=== PATIENT | female | born 1930 | race Caucasian/White ===

== ENCOUNTER 2019-01-20 13:41 | Outpatient (CLI) | payer MEDICARE ==
[2014-07-25 19:06] VITALS: BP 156/78
[2019-01-20 14:29] LABS: eGFR (Non-African) > 60
[2019-01-20 14:45] LABS: MEAN CORPUSCULAR HEMOGLOBIN 30.5 pg (28.0-34.0)
[2019-01-20 14:46] LABS: EOSINOPHILS % 1 % (0-7); MONOCYTES % 12 % (0-11); SEGMENTED NEUTROPHILS % 68 % (39-79)
--- NOTE | 2019-01-20 15:06 | Diagnostic Imaging Report ---
LISY TRUONG [facility] [address] Formerly [facility], [facility] [place] [address]. [id number] Report Submission Date: Jan 20, 2019 2:27:54 PM CDT Patient Study Name: DAMON MARX Date: Jan 20, 2019 2:00:34 PM CDT Modality Type: DX Gender: F Description: CHEST 2VIEW : [birth year] Institution: [facility] Physician: LISY TRUONG EXAMINATION: CHEST 2VIEW HISTORY: COUGHING FOR WEEKS TREATED FOR FLU NOT GETTING BETTER (Hx) COMPARISON: None FINDINGS: There is no focal consolidation, pleural effusion, or pneumothorax. The cardiomediastinal silhouette is normal. The visible bony thorax is intact. IMPRESSION: No acute pulmonary process. Electronically signed on Jan 20, 2019 2:27:54 PM CDT by: Gerardo CARTER
== END 2019-01-20 13:43 ==
LOC: LAB 13:41
PROVIDERS: ATTEND Family Medicine
DX: J11.1 Influenza due to unidentified influenza virus with other respiratory manifestations (principal)
CPT/HCPCS: 36415; 71046; 80053; 85025

== ENCOUNTER 2019-04-13 14:25 | Inpatient (IN) | payer MEDICARE ==
[2019-04-13 14:45] VITALS: BMI 25.6
[2019-04-13] MEDS ORDERED: amLODIPine BESYLATE 5 MG TABLET PO ONE (17:41)
--- NOTE | 2019-04-13 17:53 | History and Physical Report ---
History of Present Illnes - History of Present Illness Reason for Visit: rehab post ORIF of hip History of Present Illness: Patient is and 88-year-old female who three days prior to admission fell and sustained a right hip fracture. Patient subsequently underwent an open reduction internal fixation. Patient stated she is been doing well postoperatively. Patient is not had any intraoperative or postoperative complications. Patient was transferred to this institution for further rehab services with physical and occupational therapy. Patient has had a bowel movement today. Pain while resting is 1 to 2/10. With walking it goes to a 9/10. Patient is not had any previous blood clots that she is aware of. - Past Medical History Cardiac: HTN - Past Surgical History Past Surgical History: Breast Biopsy, Cataract Removal, Hysterectomy - Past Family History Father Family History: CAD, (71yo) Mother Family History: CAD (64yo), Brother 1 Family History: CAD, , Other (72yo) - Past Social History Smoke: No Occupation: retired Alcohol: Rare Drugs: None Lives: Alone Domestic Violence: Negative - Health Maintenance Health Maintenance: Influenza Vaccine, Pneumococcal Vaccine. denies: Mammogram Influenza Vaccine: Current for this Influenza Season Pneumonia Vaccine: Yes Resuscitation Status: Resusciation Status Resuscitation Status Full Code - Unable to Obtain History Unable to Obtain: Yes Review of Systems - Review of Systems Constitutional: negative: Fever, Chills Eyes: redness. negative: vision change ENT: negative: Ear Discharge, Nose Pain, Nose Discharge, Nose Congestion Respiratory: negative: Cough, Shortness of Breath, Hemoptysis Cardiovascular: negative: Chest Pain, Palpitations, Paroxysmal Noc. Dyspnea, Light Headedness Gastrointestinal: negative: Nausea, Vomiting, Abdominal Pain, Diarrhea, Constipation, Melena, Hematochezia Genitourinary: negative: Dysuria, Frequency, Incontinence, Hematuria Musculoskeletal: negative: Leg Pain (right) Skin: negative: Rash Neurological: negative: Weakness, Numbness, Incoordination - Medications/Allergies Allergies/Adverse Reactions: Allergies Allergy/AdvReac Type Severity Reaction Status Date / Time Penicillins Allergy Itchy Skin Verified 04/10/19 11:57 sulfamethoxazole Allergy Itchy Skin Verified 04/10/19 11:57 [From Bactrim] trimethoprim [From Bactrim] Allergy Itchy Skin Verified 04/10/19 11:57 Current Inpatient Medications: Current Inpatient Medications Acetaminophen (Tylenol) 650 mg PO Q4H PRN PRN Reason: Fever >101 Hydrocodone Bitart/Acetaminophen ([place] 5/325) 1 each PO Q4H PRN PRN Reason: Severe Pain (Score 8-10) Al Hydroxide/Mg Hydroxide (Milk Of Magnesia) 2,400 mg PO DAILY PRN PRN Reason: Constipation Amlodipine Besylate (Norvasc) 10 mg PO NOW ONE Stop: 04/13/19 17:42 Aspirin (Dannielle) 81 mg PO BID RITO Bisacodyl (Dulcolax) 5 mg PO DAILY [facility] Calcium/Vitamin D (Oscal + D 500mg/200unit) 1 each PO BID RITO Lisinopril (Prinivil) 20 mg PO DAILY RITO Polyethylene Glycol (Miralax) 17 gm PO 1100 RITO Exam - Exam Vital Signs: Vital Signs (72 hours) 04/13/19 04/13/19 14:38 14:43 Temperature 99.4 F 99.4 F Pulse Rate [ 102 H 102 H Left] Respiratory 20 20 Rate Blood Pressure 135/58 135/58 [Right Arm] O2 Sat by Pulse 94 94 Oximetry General: Alert, Oriented to Person, Oriented to Place, Oriented to Time, Cooperative HEENT: Atraumatic, PERRLA, EOMI, Mouth Mucous membr. moist/[place], Nose Mucous membr. moist/[place], Dentition Normal Neck: Normal Range of Motion Carotids: WNL Thyroid: WNL Lungs: Clear to auscultation, Normal air movement, Speaks full Sentences Cardiovascular: Regular rate, Normal S1, Normal S2, No murmurs Murmur: No: Systolic Murmur Abdomen: Soft, No tenderness, No hepatospenomegaly, No masses, Other (mildly tympanic), Distended (mild), Absent Bowel Sounds (decreased) Integumentary: Normal, [place], Warm, Dry, Other (incision site clean and dry) Extremities: No clubbing, No cyanosis, No edema, Normal pulses, No tenderness/swelling Neurological: Normal speech, Strength Equal Bilat, Normal tone, Sensation intact, Cranial nerves 3-12 NL, Reflexes 2+. No: Normal gait Psych/Mental Status: Mental status NL, Mood NL, Appropriate Affect, Intact Judgment Assessment/Plan - Assessment/Plan (1) Intertrochanteric fracture of right hip Status: Acute Current Visit: No Qualifiers: Encounter type: initial encounter Fracture type: closed Fracture alignment: nondisplaced Qualified Code(s): S72.144A - Nondisplaced intertr ochanteric fracture of right femur, initial encounter for closed fracture Assessment: Patient will be started on physical and occupational therapy. Will continue wit current pain regimen (2) Essential hypertension Status: Chronic Current Visit: Yes Assessment: stable Plan: Continue with home medications. VTE Assessment - RISK FACTOR SCORE VTE RISK FACTOR SCORES: AGE OVER 60 YEARS, ANTICIPATED BED CONFINEMENT OR IMMOBILIZATION > 24 HOURS - RISK VTE MODERATE RISK: SCORE OF 2 (RISK PROXIMAL DVT 2-4%) PROPHYAXIS NEEDED (on ASA)
[2019-04-13] MEDS ORDERED: ASPIRIN EC 81 MG TABLET.DR PO ONE (20:14)
[2019-04-13] MEDS: MAGNESIUM HYDROXIDE 2,400 MG/30 ML UDC PO PRN (20:15)
[2019-04-13] MEDS: CALCIUM/VIT D 500MG/200 UNIT TABLET PO SCH (20:16)
[2019-04-13] MEDS: ASPIRIN 81 MG CHEW TAB PO SCH (20:18)
[2019-04-13] MEDS: HYDROcodone /APAP 5/325 1 EACH TABLET PO PRN (20:18)
[2019-04-14 06:45] LABS: eGFR (Non-African) > 60
[2019-04-14] MEDS: ASPIRIN 81 MG CHEW TAB PO SCH ×2 (09:32→20:18)
[2019-04-14] MEDS: LISINOPRIL 10 MG TABLET PO SCH (09:32)
[2019-04-14] MEDS: BISACODYL 5 MG TABLET.DR PO SCH (09:32)
[2019-04-14] MEDS: CALCIUM/VIT D 500MG/200 UNIT TABLET PO SCH ×2 (09:32→20:18)
[2019-04-14] MEDS: HYDROcodone /APAP 5/325 1 EACH TABLET PO PRN (09:39)
[2019-04-14] MEDS: POLYETHYLENE GLYCOL 3350 17 GM POWD.PACK PO SCH (11:45)
[2019-04-14] MEDS: ACETAMINOPHEN 325 MG TABLET PO PRN (20:18)
[2019-04-14] MEDS: MAGNESIUM HYDROXIDE 2,400 MG/30 ML UDC PO PRN (20:20)
[2019-04-15] MEDS: CALCIUM/VIT D 500MG/200 UNIT TABLET PO SCH ×2 (09:12→20:44)
[2019-04-15] MEDS: ASPIRIN 81 MG CHEW TAB PO SCH ×2 (09:12→20:44)
[2019-04-15] MEDS: HYDROcodone /APAP 5/325 1 EACH TABLET PO PRN ×2 (09:12→23:36)
[2019-04-15] MEDS: BISACODYL 5 MG TABLET.DR PO SCH (09:12)
[2019-04-15] MEDS: LISINOPRIL 10 MG TABLET PO SCH (09:14)
[2019-04-15] MEDS: POLYETHYLENE GLYCOL 3350 17 GM POWD.PACK PO SCH (12:13)
[2019-04-15] MEDS: ACETAMINOPHEN 325 MG TABLET PO PRN (17:56)
[2019-04-15] MEDS: MAGNESIUM HYDROXIDE 2,400 MG/30 ML UDC PO PRN (20:48)
[2019-04-16] MEDS: BISACODYL 5 MG TABLET.DR PO SCH (08:33)
[2019-04-16] MEDS: ASPIRIN 81 MG CHEW TAB PO SCH ×2 (08:34→20:28)
[2019-04-16] MEDS: CALCIUM/VIT D 500MG/200 UNIT TABLET PO SCH ×2 (08:34→20:28)
[2019-04-16] MEDS: LISINOPRIL 10 MG TABLET PO SCH (08:35)
[2019-04-16] MEDS: POLYETHYLENE GLYCOL 3350 17 GM POWD.PACK PO SCH (11:31)
[2019-04-16] MEDS: HYDROcodone /APAP 5/325 1 EACH TABLET PO PRN (12:58)
[2019-04-17] MEDS: HYDROcodone /APAP 5/325 1 EACH TABLET PO PRN ×3 (02:31→20:40)
[2019-04-17] MEDS: ASPIRIN 81 MG CHEW TAB PO SCH ×2 (08:33→20:40)
[2019-04-17] MEDS: CALCIUM/VIT D 500MG/200 UNIT TABLET PO SCH ×2 (08:33→20:40)
[2019-04-17] MEDS: LISINOPRIL 10 MG TABLET PO SCH (08:35)
[2019-04-17] MEDS: BISACODYL 5 MG TABLET.DR PO SCH (09:14)
[2019-04-17] MEDS: POLYETHYLENE GLYCOL 3350 17 GM POWD.PACK PO SCH (11:02)
[2019-04-18] MEDS: ASPIRIN 81 MG CHEW TAB PO SCH ×2 (08:41→20:41)
[2019-04-18] MEDS: BISACODYL 5 MG TABLET.DR PO SCH (08:42)
[2019-04-18] MEDS: LISINOPRIL 10 MG TABLET PO SCH (08:42)
[2019-04-18] MEDS: CALCIUM/VIT D 500MG/200 UNIT TABLET PO SCH ×2 (08:42→20:41)
[2019-04-18] MEDS: HYDROcodone /APAP 5/325 1 EACH TABLET PO PRN ×2 (09:20→20:41)
[2019-04-18] MEDS: POLYETHYLENE GLYCOL 3350 17 GM POWD.PACK PO SCH (11:48)
[2019-04-19] MEDS: BISACODYL 5 MG TABLET.DR PO SCH (09:01)
[2019-04-19] MEDS: LISINOPRIL 10 MG TABLET PO SCH (09:01)
[2019-04-19] MEDS: CALCIUM/VIT D 500MG/200 UNIT TABLET PO SCH ×2 (09:01→20:32)
[2019-04-19] MEDS: ASPIRIN 81 MG CHEW TAB PO SCH ×2 (09:01→20:32)
[2019-04-19] MEDS: POLYETHYLENE GLYCOL 3350 17 GM POWD.PACK PO SCH (12:09)
[2019-04-19] MEDS: HYDROcodone /APAP 5/325 1 EACH TABLET PO PRN (20:32)
[2019-04-20] MEDS: HYDROcodone /APAP 5/325 1 EACH TABLET PO PRN ×4 (01:54→21:00)
[2019-04-20] MEDS: ASPIRIN 81 MG CHEW TAB PO SCH ×2 (08:06→21:26)
[2019-04-20] MEDS: CALCIUM/VIT D 500MG/200 UNIT TABLET PO SCH ×2 (08:06→21:00)
[2019-04-20] MEDS: BISACODYL 5 MG TABLET.DR PO SCH ×2 (08:07→21:12)
[2019-04-20] MEDS: LISINOPRIL 10 MG TABLET PO SCH (10:03)
[2019-04-20] MEDS: POLYETHYLENE GLYCOL 3350 17 GM POWD.PACK PO SCH (12:03)
[2019-04-21] MEDS: HYDROcodone /APAP 5/325 1 EACH TABLET PO PRN ×3 (05:23→21:21)
[2019-04-21 07:00] LABS: BASOPHILS % 0.5 % (0.0-1.5); NEUTROPHILS # 3.8 # k/uL (1.4-7.7)
[2019-04-21] MEDS: ASPIRIN 81 MG CHEW TAB PO SCH ×2 (08:50→20:42)
[2019-04-21] MEDS: CALCIUM/VIT D 500MG/200 UNIT TABLET PO SCH ×2 (08:51→20:42)
[2019-04-21] MEDS: LISINOPRIL 10 MG TABLET PO SCH (08:51)
[2019-04-21] MEDS: POLYETHYLENE GLYCOL 3350 17 GM POWD.PACK PO SCH (11:38)
[2019-04-21] MEDS: BISACODYL 5 MG TABLET.DR PO SCH ×2 (20:42→21:20)
[2019-04-22] MEDS: HYDROcodone /APAP 5/325 1 EACH TABLET PO PRN ×3 (08:41→21:50)
[2019-04-22] MEDS: BISACODYL 5 MG TABLET.DR PO SCH (08:43)
[2019-04-22] MEDS: ASPIRIN 81 MG CHEW TAB PO SCH ×2 (09:23→20:01)
[2019-04-22] MEDS: LISINOPRIL 10 MG TABLET PO SCH (09:23)
[2019-04-22] MEDS: CALCIUM/VIT D 500MG/200 UNIT TABLET PO SCH ×2 (09:24→20:01)
[2019-04-22] MEDS: POLYETHYLENE GLYCOL 3350 17 GM POWD.PACK PO SCH (11:11)
[2019-04-23] MEDS: ASPIRIN 81 MG CHEW TAB PO SCH ×2 (08:30→20:14)
[2019-04-23] MEDS: BISACODYL 5 MG TABLET.DR PO SCH (08:30)
[2019-04-23] MEDS: CALCIUM/VIT D 500MG/200 UNIT TABLET PO SCH ×2 (08:31→20:14)
[2019-04-23] MEDS: HYDROcodone /APAP 5/325 1 EACH TABLET PO PRN ×2 (08:31→21:32)
[2019-04-23] MEDS: LISINOPRIL 10 MG TABLET PO SCH (08:35)
[2019-04-23] MEDS: POLYETHYLENE GLYCOL 3350 17 GM POWD.PACK PO SCH (10:48)
[2019-04-24] MEDS: HYDROcodone /APAP 5/325 1 EACH TABLET PO PRN ×2 (07:57→21:02)
[2019-04-24] MEDS: ASPIRIN 81 MG CHEW TAB PO SCH ×2 (08:47→21:02)
[2019-04-24] MEDS: LISINOPRIL 10 MG TABLET PO SCH (08:47)
[2019-04-24] MEDS: BISACODYL 5 MG TABLET.DR PO SCH (08:47)
[2019-04-24] MEDS: CALCIUM/VIT D 500MG/200 UNIT TABLET PO SCH ×2 (08:47→21:02)
[2019-04-24] MEDS: POLYETHYLENE GLYCOL 3350 17 GM POWD.PACK PO SCH (11:39)
[2019-04-25] MEDS ORDERED: RED CRASH CART TAGS 1 EACH MC ONE (05:44)
[2019-04-25] MEDS: HYDROcodone /APAP 5/325 1 EACH TABLET PO PRN ×2 (08:02→21:10)
[2019-04-25] MEDS: LISINOPRIL 10 MG TABLET PO SCH (08:02)
[2019-04-25] MEDS: CALCIUM/VIT D 500MG/200 UNIT TABLET PO SCH ×2 (08:02→21:10)
[2019-04-25] MEDS: ASPIRIN 81 MG CHEW TAB PO SCH ×2 (08:02→21:08)
[2019-04-25] MEDS: BISACODYL 5 MG TABLET.DR PO SCH ×2 (08:03→21:09)
[2019-04-25] MEDS: POLYETHYLENE GLYCOL 3350 17 GM POWD.PACK PO SCH (10:56)
[2019-04-26] MEDS: LISINOPRIL 10 MG TABLET PO SCH (08:06)
[2019-04-26] MEDS: ASPIRIN 81 MG CHEW TAB PO SCH ×2 (08:06→20:20)
[2019-04-26] MEDS: CALCIUM/VIT D 500MG/200 UNIT TABLET PO SCH ×2 (08:06→20:20)
[2019-04-26] MEDS: POLYETHYLENE GLYCOL 3350 17 GM POWD.PACK PO SCH (11:00)
[2019-04-26] MEDS: HYDROcodone /APAP 5/325 1 EACH TABLET PO PRN (20:21)
[2019-04-27] MEDS: ASPIRIN 81 MG CHEW TAB PO SCH ×2 (08:54→20:50)
[2019-04-27] MEDS: HYDROcodone /APAP 5/325 1 EACH TABLET PO PRN ×2 (08:54→20:52)
[2019-04-27] MEDS: CALCIUM/VIT D 500MG/200 UNIT TABLET PO SCH ×2 (08:54→20:50)
[2019-04-27] MEDS: LISINOPRIL 10 MG TABLET PO SCH (08:55)
[2019-04-27] MEDS: BISACODYL 5 MG TABLET.DR PO SCH (08:55)
[2019-04-27] MEDS: POLYETHYLENE GLYCOL 3350 17 GM POWD.PACK PO SCH (12:35)
--- NOTE | 2019-04-28 08:21 | Discharge Summary ---
Discharge Summary - Discharge [facility] Admission Date: 04/13/19 (SNF) Discharge Date: 04/28/19 (Home) Discharge To: Home History of Present Illness: Patient is and 88-year-old female who three days prior to admission fell and sustained a right hip fracture. Patient subsequently underwent an open reduction internal fixation. Patient stated she is been doing well postoperatively. Patient is not had any intraoperative or postoperative complications. Patient was transferred to this institution for further rehab services with physical and occupational therapy. Patient has had a bowel movement today. Pain while resting is 1 to 2/10. With walking it goes to a 9/10. Patient is not had any previous blood clots that she is aware of Condition at Discharge: Stable Home Medications: Ambulatory Orders Medication Instructions Recorded Denosumab (Nf) [Prolia (Nf)] 60 mg SQ DIRECTED 04/23/19 Fluticasone Propion/Salmeterol 100 mcg IH DIRECTED 04/23/19 [Fluticasone-Salmeterol 100-50] Acetaminophen [Tylenol] 650 mg PO Q4H PRN tablet 04/28/19 Aspirin [Dannielle] 81 mg PO BID tab.chew 04/28/19 Bisacodyl [Dulcolax] 5 mg PO DAILY tablet. 04/28/19 Calcium Carb 500/Vit D 200 1 each PO BID tablet 04/28/19 [CALTRATE WITH VIT D] Consultations this Visit: None Procedures this Visit: None Allergies/Adverse Reactions: Allergies Allergy/AdvReac Type Severity Reaction Status Date / Time Penicillins Allergy Itchy Skin Verified 04/10/19 11:57 sulfamethoxazole Allergy Itchy Skin Verified 04/10/19 11:57 [From Bactrim] trimethoprim [From Bactrim] Allergy Itchy Skin Verified 04/10/19 11:57 Discharge Summary: Patient did quite well with physical and occupational therapy. Patient was highly motivated and participated well. At the time of dismissal patient was walking some independently but most of the time was using a walker. Patient was encouraged to continue to use a walker at this time. Patient will be continued on physical therapy on an outpatient basis. Patient pain was well controlled. At the time of dismissal patient states she which is having minimal pain which was being well treated with Tylenol. Patient did initially have some constipation problems with the subsequently resolved and at the time of dismissal dominants were normal. Patient hypertension remain stable on her home medications during her hospital stay. Patient did have a decrease appetite. Patient was encouraged to use some supplements if needed and I anticipated that when she returned home that her appetite will improved. - Final Diagnosis (1) Intertrochanteric fracture of right hip Problems: Gait and transfer ability improved (2) Essential hypertension Problems: stable on home med
--- NOTE | 2019-04-28 08:21 | Inpatient Progress Note ---
Subjective - Required Recertification Statement I anticipate X number of days because-include discharge plan: 7 days - Review of Systems Events since last encounter: Patient seem to be doing well at this time. Patient is getting physical and occupational therapy well. Patient denies that she is having a lot of pain with her hip fracture at this time. Appetite has been fair. Patient is having normal BM. Objective - Exam Vitals and I&O: Vital Signs Temp 98.2 F 04/27/19 20:22 Pulse 83 04/27/19 20:22 Resp 18 04/27/19 20:22 BP 141/65 04/27/19 20:22 Pulse Ox 98 04/27/19 20:22 Intake & Output 04/27/19 04/27/19 04/28/19 11:59 23:59 11:59 Intake Total 240 520 600 Balance 240 520 600 Intake: Oral 240 520 600 Other: Voiding Method Toilet Toilet # Voids 1 2 General: Alert, Oriented to Person, Oriented to Place, Oriented to Time, Cooperative Neck: Supple, No JVD, No thyromegaly Lungs: Clear to auscultation, Normal air movement, Speaks full Sentences Cardiovascular: Regular rate, Normal S1, Normal S2, No murmurs Abdomen: Normal bowel sounds, Soft, No tenderness, No hepatospenomegaly, No masses Skin: Other (incision site healing well.) Neurological: Normal speech, Strength Equal Bilat, Sensation intact Psych/Mental Status: Mental status NL, Mood NL, Appropriate Affect, Intact Judgment - Results Results: Laboratory Results WBC 6.40 K/ul (4.00-12.00) 04/21/19 06:40 RBC 2.78 M/ul (3.90-5.20) L 04/21/19 06:40 Hgb 8.6 g/dL (11.5-16.0) L 04/21/19 06:40 Hct 25.2 % (34.5-46.5) L 04/21/19 06:40 MCV 90.0 fl (80.0-100.0) 04/21/19 06:40 MCH 30.7 pg (28.0-34.0) 04/21/19 06:40 MCHC 34.0 g/dL (30.0-36.0) 04/21/19 06:40 RDW 12.9 % (11.3-14.3) 04/21/19 06:40 Plt Count 408 K/mm3 (130-400) H 04/21/19 06:40 Neut % (Auto) 59.8 % (39.0-79.0) 04/21/19 06:40 Lymph % (Auto) 26.7 % (16.0-50.0) 04/21/19 06:40 [place] % (Auto) 7.9 % (0.0-11.0) 04/21/19 06:40 Eos % (Auto) 5.1 % (0.0-6.8) 04/21/19 06:40 Baso % (Auto) 0.5 % (0.0-1.5) 04/21/19 06:40 Neut # (Auto) 3.8 # k/uL (1.4-7.7) 04/21/19 06:40 Lymph # (Auto) 1.7 # k/uL (0.6-4.0) 04/21/19 06:40 Sanders # (Auto) 0.5 # k/uL (0.0-0.9) 04/21/19 06:40 Eos # (Auto) 0.3 # k/uL (0.0-0.6) 04/21/19 06:40 Baso # (Auto) 0.0 # k/uL (0.0-0.5) 04/21/19 06:40 Sodium 136 mmol/L (137-145) L 04/14/19 06:00 Potassium 4.0 mmol/L (3.5-5.1) 04/14/19 06:00 Chloride 102 mmol/L (98-107) 04/14/19 06:00 Carbon Dioxide 26 mmol/L (22-30) 04/14/19 06:00 BUN 18 mg/dL (7-17) H 04/14/19 06:00 Creatinine 0.83 mg/dL (0.52-1.04) 04/14/19 06:00 Estimated Creat Clear 56 04/14/19 06:00 Est GFR ( Amer) > 60 (60-) 04/14/19 06:00 Est GFR (Non-Af Amer) > 60 (60-) 04/14/19 06:00 Glucose 107 mg/dL (74-106) H 04/14/19 06:00 Calcium 9.6 mg/dL (8.4-10.2) 04/14/19 06:00 Total Bilirubin 0.2 mg/dL (0.2-1.3) 04/14/19 06:00 AST 37 U/L (15-46) 04/14/19 06:00 ALT 20 U/L (13-69) 04/14/19 06:00 Alkaline Phosphatase 45 U/L (38-126) 04/14/19 06:00 Total Protein 5.8 g/dL (6.3-8.2) L 04/14/19 06:00 Albumin 3.5 g/dL (3.5-5.0) 04/14/19 06:00 Assessment/Plan - Assessment/Plan (1) Intertrochanteric fracture of right hip Status: Acute Qualifiers: Encounter type: initial encounter Fracture type: closed Fracture alignment: nondisplaced Qualified Code(s): S72.144A - Nondisplaced intertrochanteric fracture of right femur, initial encounter for closed fracture Assessment: Continue with occupational therapy and physical therapy. (2) Essential hypertension Status: Chronic Assessment: Continue at present home medications.
--- NOTE | 2019-04-28 08:22 | Inpatient Progress Note ---
Subjective - Required Recertification Statement I anticipate X number of days because-include discharge plan: 5 days - Review of Systems Events since last encounter: Patient seem to be doing well at this time. Patient is continued to progress quite well with her ambulation and transferring abilities. Patient states she is concerned some better appetite has not returned like it has been previously. Patient denies any nausea vomiting diarrhea constipation problems at this time. Objective - Exam Vitals and I&O: Vital Signs Temp 98.2 F 04/27/19 20:22 Pulse 83 04/27/19 20:22 Resp 18 04/27/19 20:22 BP 141/65 04/27/19 20:22 Pulse Ox 98 04/27/19 20:22 Intake & Output 04/27/19 04/27/19 04/28/19 11:59 23:59 11:59 Intake Total 240 520 600 Balance 240 520 600 Intake: Oral 240 520 600 Other: Voiding Method Toilet Toilet # Voids 1 2 General: Alert, Oriented to Person, Oriented to Place, Oriented to Time, Cooperative Lungs: Clear to auscultation, Normal air movement, Speaks full Sentences Cardiovascular: Regular rate, Normal S1, Normal S2, Murmur. No: No murmurs (10/05) Abdomen: Normal bowel sounds, Soft, No tenderness - Results Results: Laboratory Results WBC 6.40 K/ul (4.00-12.00) 04/21/19 06:40 RBC 2.78 M/ul (3.90-5.20) L 04/21/19 06:40 Hgb 8.6 g/dL (11.5-16.0) L 04/21/19 06:40 Hct 25.2 % (34.5-46.5) L 04/21/19 06:40 MCV 90.0 fl (80.0-100.0) 04/21/19 06:40 MCH 30.7 pg (28.0-34.0) 04/21/19 06:40 MCHC 34.0 g/dL (30.0-36.0) 04/21/19 06:40 RDW 12.9 % (11.3-14.3) 04/21/19 06:40 Plt Count 408 K/mm3 (130-400) H 04/21/19 06:40 Neut % (Auto) 59.8 % (39.0-79.0) 04/21/19 06:40 Lymph % (Auto) 26.7 % (16.0-50.0) 04/21/19 06:40 [place] % (Auto) 7.9 % (0.0-11.0) 04/21/19 06:40 Eos % (Auto) 5.1 % (0.0-6.8) 04/21/19 06:40 Baso % (Auto) 0.5 % (0.0-1.5) 04/21/19 06:40 Neut # (Auto) 3.8 # k/uL (1.4-7.7) 04/21/19 06:40 Lymph # (Auto) 1.7 # k/uL (0.6-4.0) 04/21/19 06:40 [place] # (Auto) 0.5 # k/uL (0.0-0.9) 04/21/19 06:40 Eos # (Auto) 0.3 # k/uL (0.0-0.6) 04/21/19 06:40 Baso # (Auto) 0.0 # k/uL (0.0-0.5) 04/21/19 06:40 Sodium 136 mmol/L (137-145) L 04/14/19 06:00 Potassium 4.0 mmol/L (3.5-5.1) 04/14/19 06:00 Chloride 102 mmol/L (98-107) 04/14/19 06:00 Carbon Dioxide 26 mmol/L (22-30) 04/14/19 06:00 BUN 18 mg/dL (7-17) H 04/14/19 06:00 Creatinine 0.83 mg/dL (0.52-1.04) 04/14/19 06:00 Estimated Creat Clear 56 04/14/19 06:00 Est GFR ( Amer) > 60 (60-) 04/14/19 06:00 Est GFR (Non-Af Amer) > 60 (60-) 04/14/19 06:00 Glucose 107 mg/dL (74-106) H 04/14/19 06:00 Calcium 9.6 mg/dL (8.4-10.2) 04/14/19 06:00 Total Bilirubin 0.2 mg/dL (0.2-1.3) 04/14/19 06:00 AST 37 U/L (15-46) 04/14/19 06:00 ALT 20 U/L (13-69) 04/14/19 06:00 Alkaline Phosphatase 45 U/L (38-126) 04/14/19 06:00 Total Protein 5.8 g/dL (6.3-8.2) L 04/14/19 06:00 Albumin 3.5 g/dL (3.5-5.0) 04/14/19 06:00 Assessment/Plan - Assessment/Plan (1) Intertrochanteric fracture of right hip Status: Acute Qualifiers: Encounter type: initial encounter Fracture type: closed Fracture alignment: nondisplaced Qualified Code(s): S72.144A - Nondisplaced intertrochanteric fracture of right femur, initial encounter for closed fracture Assessment: Continue with physical and occupational therapy. (2) Essential hypertension Status: Chronic Assessment: Continue at present home medications.
[2019-04-28 09:10] VITALS: BP 137/59
[2019-04-28] MEDS: ASPIRIN 81 MG CHEW TAB PO SCH (09:11)
[2019-04-28] MEDS: CALCIUM/VIT D 500MG/200 UNIT TABLET PO SCH (09:11)
[2019-04-28] MEDS: LISINOPRIL 10 MG TABLET PO SCH (09:12)
[2019-04-28] MEDS: BISACODYL 5 MG TABLET.DR PO SCH (09:17)
[2019-04-28] MEDS: POLYETHYLENE GLYCOL 3350 17 GM POWD.PACK PO SCH (10:35)
== END 2019-04-28 13:12 | disposition home or self-care (01) | DRG 561 ==
LOC: SOUTH 14:25
PROVIDERS: ADMIT Family Medicine; ATTEND Family Medicine
DX: S72.144D Nondisplaced intertrochanteric fracture of right femur, subsequent encounter for closed fracture with routine healing (principal); K59.00 Constipation, unspecified; I10 Essential (primary) hypertension; Z79.82 Long term (current) use of aspirin; Z79.899 Other long term (current) drug therapy; Z79.51 Long term (current) use of inhaled steroids; Z88.0 Allergy status to penicillin; Z88.2 Allergy status to sulfonamides; Z98.49 Cataract extraction status, unspecified eye; Z90.710 Acquired absence of both cervix and uterus; Z82.49 Family history of ischemic heart disease and other diseases of the circulatory system; W19.XXXD Unspecified fall, subsequent encounter
CPT/HCPCS: 80053; 85025; 97110; 97112; 97116; 97161; 97165; 97530; 97535; A9270; 99221

== ENCOUNTER 2019-05-08 10:10 | Outpatient (CLI) | payer MEDICARE ==
--- NOTE | 2019-05-08 13:46 | Diagnostic Imaging Report ---
<p>Your browser does not support iframes.</p> LISY TRUONG [facility] [address] [facility] [address] [place], [place]. [address] Report Submission Date: May 08, 2019 10:50:18 AM CDT Patient Study Name: DAMON MARX Date: May 08, 2019 10:10:00 AM CDT Modality Type: DX Gender: F Description: RT HIP 2 VIEW COMPETE : [birth year] Institution: [facility] Physician: LISY TRUONG Examination: Plain film right hip History: FOLLOW UP RT HIP REPLACEMENT IN March exams: 10 April 2019 Findings: 2 views of the right hip demonstrates fixation hardware in place. Osteopenia and degenerative changes. No dislocation. Impression: Fixation hardware in place. No evidence for new fracture or dislocation. Electronically signed on May 08, 2019 10:50:18 AM CDT by: Oneil CARTER
== END 2019-05-08 10:12 ==
LOC: RAD 10:10
PROVIDERS: ATTEND Family Medicine
DX: S72.002D Fracture of unspecified part of neck of left femur, subsequent encounter for closed fracture with routine healing (principal); X58.XXXD Exposure to other specified factors, subsequent encounter

== ENCOUNTER 2019-06-22 11:48 | Outpatient (CLI) | payer MEDICARE ==
[2019-06-22 12:11] LABS: BASOPHILS % 0.5 % (0.0-1.5); NEUTROPHILS # 3.5 # k/uL (1.4-7.7); eGFR (Non-African) > 60
[2019-06-23 07:49] LABS: A1C 5.7 % (<5.7)
== END 2019-06-22 11:50 ==
LOC: LABRHC 11:48
PROVIDERS: ATTEND Family Medicine
DX: R73.9 Hyperglycemia, unspecified (principal); R63.4 Abnormal weight loss; D50.0 Iron deficiency anemia secondary to blood loss (chronic)
CPT/HCPCS: 36415; 80053; 82607; 82746; 83036; 83540; 83735; 85025

== ENCOUNTER 2019-07-17 13:11 | Emergency (ER) | payer MEDICARE ==
--- NOTE | 2019-07-17 13:26 | ED Physician Documentation ---
Sore Throat/Dental Pain - HISTORIAN Historian: patient - HPI Stated Complaint: sore throat - PAST HX Allergies/Adverse Reactions: Allergies Allergy/AdvReac Type Severity Reaction Status Date / Time Penicillins Allergy Itchy Skin Verified 04/10/19 11:57 sulfamethoxazole Allergy Itchy Skin Verified 04/10/19 11:57 [From Bactrim] trimethoprim [From Bactrim] Allergy Itchy Skin Verified 04/10/19 11:57 Home Medications: Ambulatory Orders Medication Instructions Recorded Denosumab (Nf) [Prolia (Nf)] 60 mg SQ DIRECTED 04/23/19 Fluticasone Propion/Salmeterol 100 mcg IH DIRECTED 04/23/19 [Fluticasone-Salmeterol 100-50] Acetaminophen [Tylenol] 650 mg PO Q4H PRN tablet 04/28/19 Aspirin [Dannielle] 81 mg PO BID tab.chew 04/28/19 Bisacodyl [Dulcolax] 5 mg PO DAILY tablet. 04/28/19 Calcium Carb 500/Vit D 200 1 each PO BID tablet 04/28/19 [CALTRATE WITH VIT D] - VITAL SIGNS Vital Signs: Vital Signs Temp Pulse Resp BP Pulse Ox 137/59 04/28/19 09:40 Discharge Referrals: Guzman Soliz MD [Primary Care Provider] - 2 Days
--- NOTE | 2019-07-17 13:27 | ED Physician Documentation ---
General Adult - HISTORIAN Historian: patient - HPI Stated Complaint: weakness and shortness of air Chief Complaint: Weakness Onset: other (3weeks ) Timing: still present Further Comments: yes (She states she broke her hip 4 months ago. She went to Skilled rehab and she felt she was walking "great" she states starting about 3 weeks ago she started to have some mild shortness of air and weakness. She knows she is anemic and she states she is confused why Dr Soliz is not "giving me any real meds" - She denies any significant shortness of air or weakness) - ROS CONST: no problems - PAST HX Past History: none Immunizations: UTD Allergies/Adverse Reactions: Allergies Allergy/AdvReac Type Severity Reaction Status Date / Time Penicillins Allergy Itchy Skin Verified 07/17/19 13:28 sulfamethoxazole Allergy Itchy Skin Verified 07/17/19 13:28 [From Bactrim] trimethoprim [From Bactrim] Allergy Itchy Skin Verified 07/17/19 13:28 Home Medications: Ambulatory Orders Medication Instructions Recorded Acetaminophen [Tylenol] 650 mg PO Q4H PRN tablet 04/28/19 Aspirin [Dannielle] 81 mg PO BID tab.chew 04/28/19 Bisacodyl [Dulcolax] 5 mg PO DAILY tablet. 04/28/19 - SOCIAL HX Smoking History: non-smoker Alcohol Use: none Drug Use: none - FAMILY HX Family History: No - VITAL SIGNS Vital Signs: Vital Signs Temp Pulse Resp BP Pulse Ox 137/59 04/28/19 09:40 - REVIEWED ASSESSMENTS Nursing Assessment Reviewed: Yes Vitals Reviewed: Yes Progress - Progress Progress: Discussed case with L Weekly [employer] for Dr Soliz - further anemia studies are in order and she is willing to order Out pt PT for this pt DG General Adult Physical Exam - PHYSICAL EXAM GENERAL APPEARANCE: no distress EENT: eye inspection normal, no signs of dehydration NECK: normal inspection CVS: reg rate & rhythm, heart sounds normal, equal pulses ABDOMEN: soft, normal bowel sounds, no distension BACK: normal inspection, no CVA tenderness SKIN: warm/dry, normal color EXTREMITIES: non-tender, normal range of motion, no evidence of injury, no edema NEURO: oriented X3 Discharge Clincal Impression: Anemia Qualifiers: Anemia type: unspecified type Qualified Code(s): D64.9 - Anemia, unspecified Referrals: Guzman Soliz MD [Primary Care Provider] - 2 Days Comments: 1. Dr Soliz will order PT for out pt 2. He will follow up with you on labs 3. Return to ER for any increased concerns Condition: Stable Disposition: 01 HOME, SELF-CARE Decision to Admit: NO Date of Decison to Admit: 07/17/19 Decision Time: 14:31
[2019-07-17 13:56] LABS: BASOPHILS % 0.2 % (0.0-1.5); NEUTROPHILS # 3.7 # k/uL (1.4-7.7)
[2019-07-17 14:15] LABS: eGFR (Non-African) > 60
[2019-07-17 14:47] VITALS: BP 134/72
== END 2019-07-17 14:47 | disposition home or self-care (01) ==
LOC: ED 13:11
DX: D64.9 Anemia, unspecified (principal)
CPT/HCPCS: 80053; 85025; 99282; S1016

== ENCOUNTER 2019-07-24 10:35 | Inpatient (IN) | payer MEDICARE ==
--- NOTE | 2019-07-24 10:37 | ED Physician Documentation ---
General Adult - HISTORIAN Historian: patient - HPI Stated Complaint: on going weakness Chief Complaint: Weakness Onset: days ago (3) Timing: still present Severity: moderate Further Comments: yes (She has had some ongoing issues with weakness over last 24 hours has no appeitie and she has increased weakness. No pain. She just feels so exhaused. No one sided weakness. No recent falls) - ROS CONST: no problems - PAST HX Past History: hypertension Immunizations: UTD Allergies/Adverse Reactions: Allergies Allergy/AdvReac Type Severity Reaction Status Date / Time Penicillins Allergy Itchy Skin Verified 07/17/19 13:28 Sulfa (Sulfonamide Allergy Verified 07/24/19 12:41 Antibiotics) sulfamethoxazole Allergy Itchy Skin Verified 07/17/19 13:28 [From Bactrim] trimethoprim [From Bactrim] Allergy Itchy Skin Verified 07/17/19 13:28 Home Medications: Ambulatory Orders Medication Instructions Recorded Citalopram Hydrobromide 1 tab PO DAILY 07/24/19 [Citalopram HBr] - SOCIAL HX Smoking History: non-smoker Alcohol Use: none Drug Use: none - FAMILY HX Family History: No - VITAL SIGNS Vital Signs: Vital Signs Temp Pulse Resp BP Pulse Ox 134/72 07/17/19 14:45 - REVIEWED ASSESSMENTS Nursing Assessment Reviewed: Yes Vitals Reviewed: Yes Progress - Progress Progress: 1230: discussed case he will admit inpt DG General Adult Physical Exam - PHYSICAL EXAM GENERAL APPEARANCE: no distress EENT: eye inspection normal, pharynx normal, dry mucous membranes NECK: normal inspection RESPIRATORY: no resp distress, chest non-tender, breath sounds normal CVS: irregularly irregular rhy ABDOMEN: soft, normal bowel sounds, no distension, non-tender BACK: normal inspection, no CVA tenderness SKIN: warm/dry, pallor EXTREMITIES: non-tender, edema NEURO: oriented X3 Discharge Clincal Impression: Pneumonia Comments: Admit Dr Soliz inpt Condition: Fair Disposition: 09 ADMITTED INPATIENT Decision to Admit: [id number] Date of Decison to Admit: 07/24/19 Decision Time: 13:47
[2019-07-24 11:03] LABS: BASOPHILS % 0.2 % (0.0-1.5); NEUTROPHILS # 4.8 # k/uL (1.4-7.7)
[2019-07-24 11:11] LABS: eGFR (Non-African) > 60
--- NOTE | 2019-07-24 11:37 | Diagnostic Imaging Report ---
PATIENT MR#: [id number] PATIENT PATIENT NAME: DAMON MARX DATE OF : 1930 REFERRING PHYSICIAN: Irena Jose EXAM DATE: 07/24/2019 ACCESSION NUMBER: [id number] EXAM DESCRIPTION: CHEST 1VIEW CLINICAL HISTORY: WEAKNESS COMPARISON: January 20, 2019. CHEST RADIOGRAPH, FRONTAL: Upper mediastinum: There is calcification of the aortic arch. Heart: Cardiac silhouette is magnified due to portable technique. Mild cardiomegaly is suspected. Lungs: There is blunting of the bilateral costophrenic angles indicating mild pleural effusions, left greater than right. There is faint opacity in the lateral right lower lobe, which may represent early infiltrate o r atelectasis. A small granuloma is again seen in the left upper lobe. No mary pulmonary edema or pneumothorax. Skeleton: No acute findings. IMPRESSION: 1. Interval development of mild bilateral pleural effusions, left greater than right. 2. Faint infiltrate of the lateral right lower lobe which may represent early pneumonia or atelectasi s. Correlate with clinical presentation. 3. Mild cardiomegaly. Read by: Dr. Lincoln Ding Transcribed by: Lincoln Ding Transcribed Date: 07/24/2019 11:37:04 AM Electronically signed by: Dr. Lincoln Ding Date signed: 07/24/2019 11:37:04 AM
[2019-07-24] MEDS ORDERED: ONDANSETRON HCL/PF 4 MG/ 2ML VIAL ONE (12:45)
[2019-07-24] MEDS ORDERED: ONDANSETRON HCL/PF 4 MG/ 2ML VIAL IVP ONE (12:46)
[2019-07-24] MEDS ORDERED: ACETAMINOPHEN 325 MG TABLET PO PRN (13:41)
[2019-07-24] MEDS ORDERED: IPRATROPIUM/ALBUTEROL SULFATE 3 ML AMPUL.NEB NEB PRN (13:43)
--- NOTE | 2019-07-24 13:45 | History and Physical Report ---
History of Present Illnes - History of Present Illness Reason for Visit: weakness History of Present Illness: 88yo female who in March sustained a right hip fracture and underwent ORIF of it. She seemed to be doing well until about 4-6 weeks ago. At that time she started to have some depression symptoms. She was not eating well and has lost about 20 lbs since her hip fracture. She has not been ambulating well and spends a lot of time sleeping. She has not been as active as she was previously. Over the last week prior to admission her symptoms have become worse. She denies any fever but is not sure if she has had chills or not. Prior to admission she started to have some increasing SOB and dyspnea. Patient was seen in the ED and was noted to be weak. Chest x-ray showed some infiltrate in the RLL. Because of the patients increasing weakness and new symptoms she will be admitted to acute care for further treatment and care. - Past Medical History Cardiac: HTN - Past Surgical History Past Surgical History: Breast Biopsy, Cataract Removal, Hysterectomy, Other (ORIF Right hip) - Past Family History Mother Family History: CAD (64yo), Father Family History: CAD, (71yo) - Past Social History Smoke: No Occupation: retired Alcohol: Rare Drugs: None Lives: Alone Domestic Violence: Negative - Health Maintenance Health Maintenance: Influenza Vaccine, Pneumococcal Vaccine. denies: Mammogram Influenza Vaccine: Current for this Influenza Season Pneumonia Vaccine: Yes Resuscitation Status: Resusciation Status Resuscitation Status Full Code - Unable to Obtain History Unable to Obtain: No Review of Systems - Review of Systems Constitutional: Chills, Weakness. negative: Fever Eyes: negative: pain, vision change ENT: negative: Ear Pain, Ear Discharge, Nose Pain, Nose Discharge, Nose Congestion Respiratory: Cough, SOB with Excertion. negative: Dry, Shortness of Breath, Sputum Cardiovascular: negative: Chest Pain, Palpitations, Orthopnea, Edema, Light Hea dedness Gastrointestinal: Nausea, Vomiting. negative: Abdominal Pain, Diarrhea, Constipation, Melena, Hematochezia Genitourinary: negative: Dysuria Musculoskeletal: Leg Pain. negative: Neck Pain Skin: negative: Rash Neurological: Weakness. negative: Numbness, Incoordination - Medications/Allergies Allergies/Adverse Reactions: Allergies Allergy/AdvReac Type Severity Reaction Status Date / Time Penicillins Allergy Itchy Skin Verified 07/17/19 13:28 Sulfa (Sulfonamide Allergy Verified 07/24/19 12:41 Antibiotics) sulfamethoxazole Allergy Itchy Skin Verified 07/25/19 02:26 [From Bactrim] trimethoprim [From Bactrim] Allergy Itchy Skin Verified 07/25/19 02:26 Home Medications: Home Medications Citalopram Hydrobromide [Citalopram HBr] 1 tab PO DAILY 07/24/19 Current Inpatient Medications: Current Inpatient Medications Acetaminophen (Tylenol) 325 mg PO Q4H PRN PRN Reason: Fever >101 Stop: 08/23/19 13:40 Albuterol/Ipratropium (Duoneb) 3 ml NEB Q4 PRN PRN Reason: Wheezing Stop: 08/23/19 13:42 Citalopram Hydrobromide (Celexa) 20 mg PO DAILY [facility] Stop: 08/24/19 08:59 Enoxaparin Sodium (Lovenox) 30 mg SQ DAILY [facility] Stop: 08/08/19 08:59 Azithromycin 500 mg/ Sodium (Chloride) 250 mls @ 125 mls/hr IV Q24H [facility] Stop: 07/29/19 13:59 Levofloxacin 500 mg/ Water 100 mls @ 100 mls/hr IV DAILY [facility] Stop: 08/08/19 08:59 Pantoprazole Sodium (Protonix) 40 mg PO 0700 [facility] Stop: 08/24/19 06:59 Exam - Exam Vital Signs: Vital Signs (72 hours) 07/24/19 07/24/19 07/24/19 10:35 10:44 11:29 Temperature 99.0 F Pulse Rate 108 H 93 H Pulse Rate [ 97 H Right Pulse ox] Respiratory 15 Rate Blood Pressure 135/61 Blood Pressure 142/76 [Right Arm] O2 Sat by Pulse 94 Oximetry General: Alert, Oriented to Person, Oriented to Place, Oriented to Time, Cooperative HEENT: Atraumatic, PERRLA, EOMI, Mouth Mucous membr. moist/[place], Nose Mucous membr. moist/[place] Neck: Normal Range of Motion Lungs: Clear to auscultation, Normal air movement, Speaks full Sentences, Rhonchi Cardiovascular: Regular rate, Normal S1, Normal S2, No murmurs Abdomen: Normal bowel sounds, Soft, No tenderness, No hepatospenomegaly, No masses Integumentary: [place], Warm, Dry, Pale Extremities: No clubbing, No cyanosis, No edema, Normal pulses, No tenderness/swelling Neurological: Normal gait, Normal speech, Strength Equal Bilat, Normal tone, Sensation intact, Cranial nerves 3-12 NL, Reflexes 2+ Psych/Mental Status: Mental status NL, Mood NL, Appropriate Affect, Intact Judgment - Laboratory Results Laboratory Results: Laboratory Results 07/24/19 07/24/19 07/24/19 10:44 10:44 12:00 WBC 6.70 RBC 2.86 L Hgb 8.9 L Hct 26.1 L MCV 91.0 MCH 31.3 MCHC 34.3 RDW 14.6 H Plt Count 288 Neut % (Auto) 71.7 Lymph % (Auto) 18.3 [place] % (Auto) 8.0 Eos % (Auto) 1.8 Baso % (Auto) 0.2 Neut # (Auto) 4.8 Lymph # (Auto) 1.2 [place] # (Auto) 0.5 Eos # (Auto) 0.1 Baso # (Auto) 0.0 Sodium 144 Potassium 3.2 L Chloride 107 Carbon Dioxide 22 Anion Gap 18.2 BUN 21 H Creatinine 0.77 Estimated Creat Clear 54 Est GFR ( Amer) > 60 Est GFR (Non-Af Amer) > 60 Glucose 100 Calcium 10.1 Total Bilirubin 0.8 AST 44 ALT 22 Alkaline Phosphatase 62 NT-Pro-B Natriuret Pep 91648.0 H Total Protein 6.8 Albumin 4.3 Assessment/Plan - Assessment/Plan (1) Pneumonia Status: Acute Current Visit: Yes Qualifiers: Laterality: right Lung location: lower lobe of lung (2) Depressive disorder Status: Acute Current Visit: Yes (3) Anemia Status: Chronic Current Visit: No Qualifiers: Anemia type: iron deficiency VTE Assessment - RISK FACTOR SCORE VTE RISK FACTOR SCORES: AGE OVER 60 YEARS, ACUTE INFECTION OTHER THEN SEPSIS, ANTICIPATED BED CONFINEMENT OR IMMOBILIZATION > 24 HOURS - RISK VTE HIGH RISK: SCORE OF 3-4 (RISK PROXIMAL DVT 4-8%) PROPHYLAXIS NEEDED
[2019-07-24] MEDS ORDERED: ONDANSETRON HCL/PF 4 MG/ 2ML VIAL IVP PRN (13:49)
[2019-07-24 14:48] VITALS: BMI 51.0
[2019-07-24] MEDS ORDERED: AZITHROMYCIN 500 MG VIAL IV ONE (15:02)
[2019-07-24] MEDS ORDERED: 0.9 % SODIUM CHLORIDE 250 ML IV ONE (15:02)
[2019-07-24] MEDS: AZITHROMYCIN 500 MG in 0.9 % SODIUM CHLORIDE 250 ML IV SCH (15:24)
[2019-07-24] MEDS: FERROUS SULFATE 325 MG TABLET PO SCH (18:46)
[2019-07-24] MEDS: SODIUM CHLORIDE 0.9 % (FLUSH) 10 ML DISP.SYRIN IV SCH (20:18)
[2019-07-25] MEDS: PANTOPRAZOLE SODIUM 40 MG TABLET.DR PO SCH (05:18)
[2019-07-25 05:37] LABS: BASOPHILS % 0.2 % (0.0-1.5); NEUTROPHILS # 3.7 # k/uL (1.4-7.7)
[2019-07-25 05:41] LABS: eGFR (Non-African) > 60
[2019-07-25] MEDS: FERROUS SULFATE 325 MG TABLET PO SCH ×2 (10:10→18:17)
[2019-07-25] MEDS: ENOXAPARIN SODIUM 30 MG/0.3 ML DISP.SYRIN SQ SCH (10:10)
[2019-07-25] MEDS: CITALOPRAM HYDROBROMIDE 20 MG TABLET PO SCH (10:10)
[2019-07-25] MEDS: SODIUM CHLORIDE 0.9 % (FLUSH) 10 ML DISP.SYRIN IV SCH ×2 (10:13→20:47)
--- NOTE | 2019-07-25 13:55 | Inpatient Progress Note ---
Subjective - Required Recertification Statement I anticipate X number of days because-include discharge plan: 2 days - Review of Systems Events since last encounter: Patient seems to be doing better at this time. States that she in not as SOB as yesterday. She does not complain of any cough at this time. Appetite is poor but she is eating some. Has been up walking to the bathroom. Patient complained of some insomnia last night. General: Denies: Chills Pulmonary: Dyspnea. Denies: Cough Cardiovascular: Denies: Chest Pain, Palpitations Gastrointestinal: Denies: Nausea, Vomiting, Abdominal Pain Neurological: Denies: Weakness, Numbness Objective - Exam Vitals and I&O: Vital Signs Temp 98.8 F 07/25/19 09:29 Pulse 85 07/25/19 10:00 Resp 20 07/25/19 10:00 BP 104/54 07/25/19 09:29 Pulse Ox 97 07/25/19 09:29 Intake & Output 07/24/19 07/25/19 07/25/19 23:59 11:59 23:59 Intake Total 330 60 3 Output Total 0 0 Balance 330 60 3 Weight 126.5 kg Intake: IV 3 Right Antecubital 3 Oral 330 60 Output: Urine 0 0 Other: Voiding Method Toilet Toilet General: Alert, Oriented to Person, Oriented to Place, Oriented to Time, Cooperative HEENT: Atraumatic, PERRLA, EOMI, Mouth Mucous membr. moist/[place], Nose Mucous membr. moist/[place] Neck: Supple, No JVD, No thyromegaly Lungs: Normal air movement, Speaks full Sentences, Rales (RLL). No: Wheezes, Rhonchi Cardiovascular: Regular rate, Normal S1, Normal S2 Abdomen: Normal bowel sounds, Soft, No tenderness Extremities: No clubbing, No cyanosis, No edema Skin: Normal, [place], Warm, Dry Neurological: Normal speech, Strength Equal Bilat, Sensation intact. No: Normal gait (slightly ataxic) - Results Results: Laboratory Results WBC 6.00 K/ul (4.00-12.00) 07/25/19 05:05 RBC 2.41 M/ul (3.90-5.20) L 07/25/19 05:05 Hgb 7.6 g/dL (11.5-16.0) L 07/25/19 05:05 Hct 22.1 % (34.5-46.5) L 07/25/19 05:05 MCV 92.0 fl (80.0-100.0) 07/25/19 05:05 MCH 31.3 pg (28.0-34.0) 07/25/19 05:05 MCHC 34.1 g/dL (30.0-36.0) 07/25/19 05:05 RDW 14.2 % (11.3-14.3) 07/25/19 05:05 Plt Count 225 K/mm3 (130-400) 07/25/19 05:05 Neut % (Auto) 61.8 % (39.0-79.0) 07/25/19 05:05 Lymph % (Auto) 25.6 % (16.0-50.0) 07/25/19 05:05 [place] % (Auto) 9.7 % (0.0-11.0) 07/25/19 05:05 Eos % (Auto) 2.7 % (0.0-6.8) 07/25/19 05:05 Baso % (Auto) 0.2 % (0.0-1.5) 07/25/19 05:05 Neut # (Auto) 3.7 # k/uL (1.4-7.7) 07/25/19 05:05 Lymph # (Auto) 1.5 # k/uL (0.6-4.0) 07/25/19 05:05 [place] # (Auto) 0.6 # k/uL (0.0-0.9) 07/25/19 05:05 Eos # (Auto) 0.2 # k/uL (0.0-0.6) 07/25/19 05:05 Baso # (Auto) 0.0 # k/uL (0.0-0.5) 07/25/19 05:05 Sodium 143 mmol/L (137-145) 07/25/19 05:05 Potassium 3.1 mmol/L (3.5-5.1) L 07/25/19 05:05 Chloride 109 mmol/L (98-107) H 07/25/19 05:05 Carbon Dioxide 23 mmol/L (22-30) 07/25/19 05:05 Anion Gap 14.1 07/25/19 05:05 BUN 24 mg/dL (7-17) H 07/25/19 05:05 Creatinine 1.01 mg/dL (0.52-1.04) 07/25/19 05:05 Estimated Creat Clear 92 07/25/19 05:05 Est GFR ( Amer) > 60 (60-) 07/25/19 05:05 Est GFR (Non-Af Amer) > 60 (60-) 07/25/19 05:05 Glucose 82 mg/dL (74-106) 07/25/19 05:05 Calcium 9.5 mg/dL (8.4-10.2) 07/25/19 05:05 Total Bilirubin 0.4 mg/dL (0.2-1.3) 07/25/19 05:05 AST 33 U/L (15-46) 07/25/19 05:05 ALT 19 U/L (0-35) 07/25/19 05:05 Alkaline Phosphatase 46 U/L (38-126) 07/25/19 05:05 NT-Pro-B Natriuret Pep 15372.0 pg/mL (15.0-450.0) H 07/24/19 12:00 Total Protein 5.4 g/dL (6.3-8.2) L 07/25/19 05:05 Albumin 3.4 g/dL (3.5-5.0) L 07/25/19 05:05 Assessment/Plan - Assessment/Plan (1) Pneumonia Status: Acute Current Visit: Yes Qualifiers: Laterality: right Lung location: lower lobe of lung Assessment: stable to improving (2) Depressive disorder Status: Acute Current Visit: Yes Assessment: stable Plan: Continue supplemental oxygen as needed. WIll conitnue IV antibiotics, transition to po tomorrow. (3) Anemia Status: Chronic Current Visit: No Qualifiers: Anemia type: iron deficiency Qualified Code(s): D64.9 - Anemia, unspecified Plan: Will recheck CBC in the AM (4) Gait disturbance Status: Acute Current Visit: Yes
[2019-07-25] MEDS: AZITHROMYCIN 500 MG in 0.9 % SODIUM CHLORIDE 250 ML IV SCH (14:17)
--- NOTE | 2019-07-25 14:23 | Discharge Summary ---
Discharge Summary - Discharge [place] Admission Date: 07/24/19 (Acute) Discharge Date: 07/27/19 (SNF) Discharge To: Other ([facility]) History of Present Illness: 88yo female who in March sustained a right hip fracture and underwent ORIF of it. She seemed to be doing well until about 4-6 weeks ago. At that time she started to have some depression symptoms. She was not eating well and has lost about 20 lbs since her hip fracture. She has not been ambulating well and spends a lot of time sleeping. She has not been as active as she was previously. Over the last week prior to admission her symptoms have become worse. She denies any fever but is not sure if she has had chills or not. Prior to admission she started to have some increasing SOB and dyspnea. Patient was seen in the ED and was noted to be weak. Chest x-ray showed some infiltrate in the RLL. Because of the patients increasing weakness and new symptoms she will be admitted to acute care for further treatment and care. Condition at Discharge: Stable Home Medications: Ambulatory Orders Medication Instructions Recorded Citalopram Hydrobromide 1 tab PO DAILY 07/24/19 [Citalopram HBr] Mirtazapine [Remeron] 15 mg PO HS #30 tablet 08/14/19 Consultations this Visit: None Procedures this Visit: None Allergies/Adverse Reactions: Allergies Allergy/AdvReac Type Severity Reaction Status Date / Time Penicillins Allergy Itchy Skin Verified 07/17/19 13:28 Sulfa (Sulfonamide Allergy Verified 07/24/19 12:41 Antibiotics) sulfamethoxazole Allergy Itchy Skin Verified 07/25/19 02:26 [From Bactrim] trimethoprim [From Bactrim] Allergy Itchy Skin Verified 07/25/19 02:26 Discharge Summary: Patient website on azithromycin and Levaquin IV. Patient was started on high flow nebulization treatments to help with her breathing and dyspnea. Patient pulmonary status did improve. Patient continues to have problems with depression and marginal oral intake. Patient was weak and was not ambulating well. It was felt that she would benefit from further skilled services was subsequently transferred to SNF for further occupational therapy and physical therapy. - Final Diagnosis (1) Pneumonia Problems: stable to improved (2) Depressive disorder Problems: stable, continue citalopram (3) Anemia Problems: stable (4) CHF (congestive heart failure) Problems: will start lasix
[2019-07-25] MEDS: MELATONIN 3 MG TABLET PO SCH (20:47)
[2019-07-26] MEDS: PANTOPRAZOLE SODIUM 40 MG TABLET.DR PO SCH (05:33)
[2019-07-26 06:32] LABS: NEUTROPHILS # 1.3 # k/uL (1.4-7.7)
[2019-07-26 06:40] LABS: eGFR (Non-African) > 60
--- NOTE | 2019-07-26 08:43 | Inpatient Progress Note ---
Subjective - Required Recertification Statement I anticipate X number of days because-include discharge plan: 1 day - Review of Systems Subjective: Patient seem to be stable. Patient continues to be depressed. Appetite has been marginal. Patient stated her breathing does seem to be improving she is not competent much. Patient denies any chest pain chest pressure TIA or CVA symptoms. Patient does have some dyspnea with exertion. Patient is still unsteady on her feet. It does appear that she will need skilled services before returning home. Objective - Exam Vitals and I&O: Vital Signs Temp 100.5 F H 07/26/19 06:00 Pulse 79 07/26/19 06:00 Resp 16 07/26/19 06:00 BP 104/49 07/26/19 06:00 Pulse Ox 97 07/26/19 02:00 Intake & Output 07/25/19 07/25/19 07/26/19 11:59 23:59 11:59 Intake Total 60 842 240 Output Total 0 Balance 60 842 240 Intake: IV 362 Right Antecubital 362 Oral 60 480 240 Output: Urine 0 Other: Voiding Method Toilet Toilet Toilet # Voids 1 General: Alert, Oriented to Person, Oriented to Place, Oriented to Time, Mild distress Neck: Supple Lungs: Normal air movement, Rales Cardiovascular: Regular rate, Normal S1, Normal S2, No murmurs Abdomen: Normal bowel sounds, Soft, No tenderness - Results Results: Laboratory Results WBC 4.90 K/ul (4.00-12.00) 07/26/19 06:00 RBC 2.47 M/ul (3.90-5.20) L 07/26/19 06:00 Hgb 7.8 g/dL (11.5-16.0) L 07/26/19 06:00 Hct 22.6 % (34.5-46.5) L 07/26/19 06:00 MCV 92.0 fl (80.0-100.0) 07/26/19 06:00 MCH 31.5 pg (28.0-34.0) 07/26/19 06:00 MCHC 34.3 g/dL (30.0-36.0) 07/26/19 06:00 RDW 14.4 % (11.3-14.3) H 07/26/19 06:00 Plt Count 60 K/mm3 (130-400) L 07/26/19 06:00 Neut % (Auto) 27.1 % (39.0-79.0) L 07/26/19 06:00 Lymph % (Auto) 10.5 % (16.0-50.0) L 07/26/19 06:00 [place] % (Auto) 2.4 % (0.0-11.0) 07/26/19 06:00 Eos % (Auto) 0.3 % (0.0-6.8) 07/26/19 06:00 Baso % (Auto) 3.0 % (0.0-1.5) H 07/26/19 06:00 Neut # (Auto) 1.3 # k/uL (1.4-7.7) L 07/26/19 06:00 Lymph # (Auto) 0.5 # k/uL (0.6-4.0) L 07/26/19 06:00 [place] # (Auto) 0.1 # k/uL (0.0-0.9) 07/26/19 06:00 Eos # (Auto) 0.0 # k/uL (0.0-0.6) 07/26/19 06:00 Baso # (Auto) 0.0 # k/uL (0.0-0.5) 07/26/19 06:00 Sodium 143 mmol/L (137-145) 07/26/19 06:00 Potassium 3.4 mmol/L (3.5-5.1) L 07/26/19 06:00 Chloride 108 mmol/L (98-107) H 07/26/19 06:00 Carbon Dioxide 24 mmol/L (22-30) 07/26/19 06:00 Anion Gap 14.4 07/26/19 06:00 BUN 28 mg/dL (7-17) H 07/26/19 06:00 Creatinine 0.95 mg/dL (0.52-1.04) 07/26/19 06:00 Estimated Creat Clear 98 07/26/19 06:00 Est GFR ( Amer) > 60 (60-) 07/26/19 06:00 Est GFR (Non-Af Amer) > 60 (60-) 07/26/19 06:00 Glucose 93 mg/dL (74-106) 07/26/19 06:00 Calcium 9.9 mg/dL (8.4-10.2) 07/26/19 06:00 Total Bilirubin 0.4 mg/dL (0.2-1.3) 07/26/19 06:00 AST 44 U/L (15-46) 07/26/19 06:00 ALT 29 U/L (0-35) 07/26/19 06:00 Alkaline Phosphatase 53 U/L (38-126) 07/26/19 06:00 NT-Pro-B Natriuret Pep 63306.0 pg/mL (15.0-450.0) H 07/24/19 12:00 Total Protein 5.7 g/dL (6.3-8.2) L 07/26/19 06:00 Albumin 3.6 g/dL (3.5-5.0) 07/26/19 06:00 Assessment/Plan - Assessment/Plan (1) Pneumonia Status: Acute Qualifiers: Laterality: right Lung location: lower lobe of lung Assessment: Appeared to be improving. (2) Depressive disorder Status: Acute Assessment: Patient continues to have problems associated with it. Patient has been placed on antidepressant medication. (3) Anemia Status: Chronic Qualifiers: Anemia type: iron deficiency Assessment: Stable
[2019-07-26] MEDS: ENOXAPARIN SODIUM 30 MG/0.3 ML DISP.SYRIN SQ SCH (09:55)
[2019-07-26] MEDS: CITALOPRAM HYDROBROMIDE 20 MG TABLET PO SCH (09:55)
[2019-07-26] MEDS: SODIUM CHLORIDE 0.9 % (FLUSH) 10 ML DISP.SYRIN IV SCH ×2 (10:03→20:18)
[2019-07-26] MEDS: FERROUS SULFATE 325 MG TABLET PO SCH ×2 (11:06→18:09)
[2019-07-26] MEDS: AZITHROMYCIN 500 MG in 0.9 % SODIUM CHLORIDE 250 ML IV SCH (14:45)
[2019-07-26] MEDS: MELATONIN 3 MG TABLET PO SCH (20:18)
[2019-07-27] MEDS: PANTOPRAZOLE SODIUM 40 MG TABLET.DR PO SCH (06:12)
[2019-07-27] MEDS: SODIUM CHLORIDE 0.9 % (FLUSH) 10 ML DISP.SYRIN IV SCH (08:26)
[2019-07-27] MEDS: ENOXAPARIN SODIUM 30 MG/0.3 ML DISP.SYRIN SQ SCH (08:26)
[2019-07-27] MEDS: CITALOPRAM HYDROBROMIDE 20 MG TABLET PO SCH (08:27)
[2019-07-27] MEDS: FERROUS SULFATE 325 MG TABLET PO SCH (11:39)
[2019-07-27 13:03] VITALS: BP 94/56
--- NOTE | 2019-07-28 13:32 | Diagnostic Imaging Report ---
[facility] [id number] [facility] [id number] Patient Name: DAMON MARX Referring Physician: Guzman Soliz Date of : 1930 Radiologist: Gender: F Date of Service: 07/26/2019 Exam Requested: CT ABD PELVIS W/ CON ADDENDUM: Additionally, there is advanced lumbar degenerative disc disease and facet arthropathy. ORY: 88-year-old female with loss of appetite. COMPARISON: None available TECHNIQUE: Helical CT images of the abdomen and pelvis were performed with 90 ml Omnipaque 350 IV contrast. Sagittal and coronal reformatted images were obtained. FINDINGS: CT abdomen: There are moderate bilateral pleural effusions and mild associated compressive atelectasis of the lower lobes. The heart is enlarged. There are coronary artery calcifications. The gallbladder wall is thickened. There are bilateral renal simple cysts. The liver, spleen, pancreas, and adrenal glands are unremarkable. No abdominal aortic aneurysm. There is trace free fluid in the upper abdomen. CT pelvis: No abnormal bowel dilatation, free air, or suspicious adenopathy. There is descending and sigmoid colon diverticulosis. There is low volume free fluid in the pelvis. The uterus is surgically absent. The appendix and urinary bladder are normal in appearance. There are postoperative changes of right proximal femoral DHS fixation. IMPRESSION: 1. Gallbladder wall thickening may be due to acalculous cholecystitis or may be artifactual and related to abdominopelvic ascites. Consider follow-up right upper quadrant ultrasound for better characterization. 2. Cardiomegaly and moderate bilateral pleural effusions. This appearance may be related to CHF. 3. Bilateral renal simple cyst. 4. Postoperative changes of hysterectomy and right proximal femoral fixation. 5. Descending and sigmoid colon diverticulosis without evidence of acute diverticulitis.
== END 2019-07-27 13:00 | DRG 195 ==
LOC: ED 10:35 → SOUTH 13:24
PROVIDERS: ADMIT Family Medicine; ATTEND Family Medicine
DX: J18.9 Pneumonia, unspecified organism (principal); I11.0 Hypertensive heart disease with heart failure; I50.9 Heart failure, unspecified; R26.89 Other abnormalities of gait and mobility; R53.1 Weakness; D50.9 Iron deficiency anemia, unspecified; F32.9 Major depressive disorder, single episode, unspecified; Z88.0 Allergy status to penicillin; Z88.2 Allergy status to sulfonamides; Z79.899 Other long term (current) drug therapy; Z98.49 Cataract extraction status, unspecified eye; Z90.710 Acquired absence of both cervix and uterus
CPT/HCPCS: 71045; 74177; 80053; 83880; 85025; 87040; 93005; 97161; 97165; J0456; J1650; J1956; J2405; J7050; Q9967; 99221; 99222; 99231; 99238; S1016

== ENCOUNTER 2019-09-28 06:17 | Inpatient (IN) | payer MEDICARE ==
--- NOTE | 2019-09-28 06:57 | ED Physician Documentation ---
Dyspnea - HISTORIAN Historian: patient, child (Son) - HPI Stated Complaint: shortness of air Chief Complaint: Dyspnea Additional Information: 89 year old female presents to the ER with son. Patient c/o shortness of breath that started 4-5 days ago with increasing edema to the lower extremities; son states he works in the ER as a tech; questioned why waited so long to have mother seen; patient has pitting edema up to the knees. Patient states that she gets very short of breath with exertion. Son states that heart rate goes up to 120s; explained that this will happen with all the edema. Onset: days ago Duration: continues in ED Severity: moderate Exacerbated By: laying flat Associated Symptoms: productive cough. denies: chills, fever - ROS CONST: weakness EYES/ENT: none GI/: none NEURO/PSYCH: denies: headache MS/SKIN/LYMPH: none - PAST HX Lung Disease: pneumonia Cardiac Disease: CHF, other (anemia, depression) PE Risk Factors: hypertension Surgeries/Procedures: hysterectomy, other (breast biopsy, right hip replacement, cataract, ORIF right hip) Other History: none Immunizations: influenza, pneumovax, UTD - SOCIAL HX Smoking History: non-smoker Alcohol Use: none Drug Use: none - FAMILY HX Family History: none - VITAL SIGNS Vital Signs: Vital Signs Temp Pulse Resp BP Pulse Ox 98.7 F 95 H 22 133/64 94 09/28/19 06:17 09/28/19 06:17 09/28/19 06:17 09/28/19 06:17 09/28/19 06:17 - REVIEWED ASSESSMENTS Nursing Assessment Reviewed: Yes Vitals Reviewed: Yes <Lauren Freire - Last Filed: 09/28/19 07:03> - VITAL SIGNS Vital Signs: Vital Signs Temp Pulse Resp BP Pulse Ox 98.7 F 95 H 22 133/64 94 09/28/19 06:17 09/28/19 06:17 09/28/19 06:17 09/28/19 06:17 09/28/19 06:17 <Emile Raines - Last Filed: 09/28/19 08:13> - PAST HX Allergies/Adverse Reactions: Allergies Allergy/AdvReac Type Severity Reaction Status Date / Time Penicillins Allergy Itchy Skin Verified 09/28/19 06:53 Sulfa (Sulfonamide Allergy Verified 09/28/19 06:53 Antibiotics) sulfamethoxazole Allergy Itchy Skin Verified 09/28/19 06:53 [From Bactrim] trimethoprim [From Bactrim] Allergy Itchy Skin Verified 09/28/19 06:53 Home Medications: Ambulatory Orders Medication Instructions Recorded Citalopram Hydrobromide 1 tab PO DAILY 07/24/19 [Citalopram HBr] Mirtazapine [Remeron] 15 mg PO HS #30 tablet 08/14/19 Progress - Progress Progress: 40 mg Lasix IV in ER Admit to Dr. Soliz, acute, CHF - EKG/XRAY/CT EKG: rhythm (sinus arrhythmia, HR=92; normal axis; normal VA interval.) XRAY: chest (Cardiomegaly, small pleural effusions, and mild pulmonary vascular congestion. ) <Emile Raines - Last Filed: 09/28/19 08:13> ED Results Lab/Radiology - Orders Orders: ED Orders Category Date Time Status Continuous EKG monitoring Q30M Care 09/28/19 06:37 Active Continuous Pulse Oximetry Q30M Care 09/28/19 06:[address] IV Lock 1T Care 09/28/19 06:37 Active CHEST 2VIEW [RAD] Stat Exams 09/28/19 Ordered CBC/PLATELET/DIFF Stat Lab 09/28/19 06:37 Ordered CKMB Stat Lab 09/28/19 Ordered CMP Stat Lab 09/28/19 Ordered CREATINE KINASE Stat Lab 09/28/19 Ordered NT BNP Stat Lab 09/28/19 Ordered TROPONIN I Stat Lab 09/28/19 Ordered Oxygen Daily Oxygen 09/28/19 06:45 Ordered EKG WITH COMPARISON Stat Ther 09/28/19 06:37 Ordered <Lauren Freire - Last Filed: 09/28/19 07:03> - Lab Results Lab Results: Lab Results 09/28/19 09/28/19 06:50 06:50 WBC 5.20 K/ul K/ul (4.00-12.00) RBC 3.14 M/ul L M/ul (3.90-5.20) Hgb 9.6 g/dL L g/dL (11.5-16.0) Hct 28.1 % L % (34.5-46.5) MCV 90.0 fl fl (80.0-100.0) MCH 30.5 pg pg (28.0-34.0) MCHC 34.0 g/dL g/dL (30.0-36.0) RDW 14.5 % H % (11.3-14.3) Plt Count 264 K/mm3 K/mm3 (130-400) Neut % (Auto) 50.5 % % (39.0-79.0) Lymph % (Auto) 36.0 % % (16.0-50.0) [place] % (Auto) 7.2 % % (0.0-11.0) Eos % (Auto) 5.7 % % (0.0-6.8) Baso % (Auto) 0.6 % % (0.0-1.5) Neut # (Auto) 2.6 # k/uL # k/uL (1.4-7.7) Lymph # (Auto) 1.9 # k/uL # k/uL (0.6-4.0) [place] # (Auto) 0.4 # k/uL # k/uL (0.0-0.9) Eos # (Auto) 0.3 # k/uL # k/uL (0.0-0.6) Baso # (Auto) 0.0 # k/uL # k/uL (0.0-0.5) Sodium 145 mmol/L mmol/L (137-145) Potassium 4.0 mmol/L mmol/L (3.5-5.1) Chloride 111 mmol/L H mmol/L (98-107) Carbon Dioxide 22 mmol/L mmol/L (22-30) Anion Gap 16.0 BUN 31 mg/dL H mg/dL (7-17) Creatinine 1.59 mg/dL H mg/dL (0.52-1.04) Estimated Creat Clear 57 Est GFR ( Amer) 39 L (60 - ) Est GFR (Non-Af Amer) 33 L (60 - ) Glucose 99 mg/dL mg/dL (74-106) Calcium 10.0 mg/dL mg/dL (8.4-10.2) Total Bilirubin 0.7 mg/dL mg/dL (0.2-1.3) AST 40 U/L U/L (15-46) ALT 21 U/L U/L (4-35) Alkaline Phosphatase 74 U/L U/L (38-126) Creatine Kinase 69 U/L U/L (30-135) CK-MB (CK-2) < 2.7 ng/mL ng/mL (0.0-5.6) Troponin I 0.075 ng/mL H ng/mL (0.012-0.034) NT-Pro-B Natriuret Pep > 90030.0 pg/mL H pg/mL (15.0-450.0) Total Protein 5.9 g/dL L g/dL (6.3-8.2) Albumin 3.9 g/dL g/dL (3.5-5.0) - Orders Orders: ED Orders Category Date Time Status Continuous EKG monitoring Q30M Care 09/28/19 06:37 Active Continuous Pulse Oximetry Q30M Care 09/28/19 06:[address] IV Lock 1T Care 09/28/19 06:37 Active CHEST 2VIEW [RAD] Stat Exams 09/28/19 Taken CBC/PLATELET/DIFF Stat Lab 09/28/19 06:50 Completed CKMB Stat Lab 09/28/19 06:50 Completed CMP Stat Lab 09/28/19 06:50 Completed CREATINE KINASE Stat Lab 09/28/19 06:50 Completed NT BNP Stat Lab 09/28/19 06:50 Completed TROPONIN I Stat Lab 09/28/19 06:50 Completed Furosemide [Lasix] Med 09/28/19 07:00 Discontinued 40 mg IVP NOW ONE Oxygen Daily Oxygen 09/28/19 06:45 Ordered EKG WITH COMPARISON Stat Ther 09/28/19 06:37 Completed <Emile Raines - Last Filed: 09/28/19 08:13> Dyspnea Physical Exam - EXAM General Appearance: alert, mild distress EENT: eye inspection normal, ENT inspection normal, pharynx normal, DELVIS Neck: nml inspection Respiratory: speaks full sentences, rales (bibasilar) CVS: tachycardia Abdomen: non-tender, no distention Skin: pallor, warm, dry Extremities: edema (3+ pitting edema) Neuro/Psych: oriented x3, CN's nml as tested, motor nml, sensation nml, mood/affect nml <Lauren Freire - Last Filed: 09/28/19 07:03> Discharge <Lauren Freire - Last Filed: 09/28/19 07:03> Decision to Admit: [id number] Decision Time: 07:50 <Emile Raines - Last Filed: 09/28/19 08:13> Clincal Impression: CHF (congestive heart failure) Qualifiers: Heart failure type: unspecified Heart failure chronicity: unspecified Qualified Code(s): I50.9 - Heart failure, unspecified Condition: Stable Disposition: 09 ADMITTED INPATIENT
[2019-09-28] MEDS ORDERED: FUROSEMIDE 40 MG/4 ML VIAL IVP ONE (07:00)
[2019-09-28 07:10] LABS: BASOPHILS % 0.6 % (0.0-1.5); NEUTROPHILS # 2.6 # k/uL (1.4-7.7)
[2019-09-28 07:26] LABS: eGFR (Non-African) 33
--- NOTE | 2019-09-28 07:39 | Diagnostic Imaging Report ---
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 Superimposed mild bilateral int erstitial opacities likely represent mild pulmonary vascular congestion. There is no pneumothorax. The cardiac silhouette is enlarged. The aorta is atherosclerotic. The visible bony thorax is intact. IMPRESSION: Cardiomegaly, small pleural effusions, and mild pulmonary vascular congestion. Read by: Gerardo Bryan Transcribed by: Transcribed Date: Electronically signed by: Gerardo Bryan Date signed: 09/28/2019 7:38:45 AM
[2019-09-28 08:32] VITALS: BMI 25.3
[2019-09-28] MEDS: CITALOPRAM HYDROBROMIDE 20 MG TABLET PO SCH (08:37)
[2019-09-28] MEDS: SODIUM CHLORIDE 0.9 % (FLUSH) 10 ML DISP.SYRIN IV SCH ×2 (09:51→21:11)
[2019-09-28] MEDS: FUROSEMIDE 40 MG/4 ML VIAL IVP SCH ×2 (09:51→20:45)
--- NOTE | 2019-09-28 18:58 | History and Physical Report ---
History of Present Illnes - History of Present Illness Reason for Visit: dyspnea History of Present Illness: 81-year-old white female who stated over the last 3 to 4 days she had noted increasing swelling in her legs and increasing shortness of breath and some orthopnea symptoms. Patient stated she is had a mild nonproductive cough. Patient has been having dyspnea with exertion. Patient denies any chest pain or chest pressure. Patient does not have any previous history of congestive heart failure. Patient was seen in the emergency room felt to have some pulmonary edema on chest x-ray BNP was markedly elevated. Patient was felt to be in congestive heart failure subsequently admitted to the hospital for further care and evaluation. - Past Medical History Cardiac: HTN - Past Surgical History Past Surgical History: Breast Biopsy, Cataract Removal, Hysterectomy, Other (ORIF Right hip) - Past Social History Smoke: No Occupation: retired Alcohol: Rare Drugs: None Lives: Alone Domestic Violence: Negative - Health Maintenance Health Maintenance: Influenza Vaccine, Pneumococcal Vaccine. denies: Mammogram Influenza Vaccine: Current for this Influenza Season Pneumonia Vaccine: Yes Resuscitation Status: Resusciation Status Resuscitation Status Full Code Review of Systems - Review of Systems Constitutional: negative: Fever, Chills, Sweats, Weakness Eyes: negative: pain ENT: negative: Ear Pain, Ear Discharge, Nose Pain, Nose Discharge, Nose Congestion Respiratory: Cough, Dry, Shortness of Breath, SOB with Excertion Cardiovascular: negative: Chest Pain, Palpitations, Orthopnea Gastrointestinal: Constipation. negative: Nausea, Vomiting, Abdominal Pain, Diarrhea, Melena Genitourinary: negative: Dysuria, Frequency, Incontinence Musculoskeletal: Back Pain Skin: negative: Rash Neurological: Weakness. negative: Numbness, Incoordination, Change in Speech - Medications/Allergies Allergies/Adverse Reactions: Allergies Allergy/AdvReac Type Severity Reaction Status Date / Time Penicillins Allergy Itchy Skin Verified 09/28/19 06:53 Sulfa (Sulfonamide Allergy Verified 09/28/19 06:53 Antibiotics) sulfamethoxazole Allergy Itchy Skin Verified 09/28/19 06:53 [From Bactrim] trimethoprim [From Bactrim] Allergy Itchy Skin Verified 09/28/19 06:53 Current Inpatient Medications: Current Inpatient Medications Citalopram Hydrobromide (Celexa) 10 mg PO DAILY [facility] Stop: 10/28/19 08:59 Last Admin: 09/28/19 08:37 Dose: 10 mg Furosemide (Lasix) 40 mg IVP Q12 [facility] Stop: 10/28/19 08:59 Last Admin: 09/28/19 09:51 Dose: Not Given Mirtazapine (Remeron) 15 mg PO HS [facility] Stop: 10/28/19 20:59 Exam - Exam Vital Signs: Vital Signs (72 hours) 09/28/19 09/28/19 09/28/19 06:17 06:37 07:07 Temperature 98.7 F Pulse Rate 89 84 Pulse Rate [ Left] Pulse Rate [ Radial] Pulse Rate [ 95 H Right Pulse ox] Respiratory 22 Rate Blood Pressure [Left Arm] Blood Pressure 133/64 [Right Arm] O2 Sat by Pulse 94 96 96 Oximetry 09/28/19 09/28/19 09/28/19 07:30 08:03 08:14 Temperature 98.7 F 98.7 F Pulse Rate 91 H Pulse Rate [ 92 H Left] Pulse Rate [ Radial] Pulse Rate [ 90 92 H Right Pulse ox] Respiratory 24 22 Rate Blood Pressure 124/67 [Left Arm] Blood Pressure 117/69 [Right Arm] O2 Sat by Pulse 96 95 95 Oximetry 09/28/19 09/28/19 09/28/19 08:27 08:30 09:56 Temperature 98.7 F Pulse Rate 85 86 Pulse Rate [ 92 H Left] Pulse Rate [ Radial] Pulse Rate [ Right Pulse ox] Respiratory 22 Rate Blood Pressure 124/67 [Left Arm] Blood Pressure [Right Arm] O2 Sat by Pulse 95 Oximetry 09/28/19 09/28/19 09/28/19 10:00 14:00 17:31 Temperature 98.8 F 98.9 F 99.7 F H Pulse Rate 108 H Pulse Rate [ 115 H Left] Pulse Rate [ 88 115 H Radial] Pulse Rate [ Right Pulse ox] Respiratory 20 20 26 H Rate Blood Pressure 113/66 126/66 126/71 [Left Arm] Blood Pressure [Right Arm] O2 Sat by Pulse 96 95 98 Oximetry 09/28/19 09/28/19 17:45 18:00 Temperature Pulse Rate 115 H Pulse Rate [ Left] Pulse Rate [ Radial] Pulse Rate [ Right Pulse ox] Respiratory Rate Blood Pressure [Left Arm] Blood Pressure [Right Arm] O2 Sat by Pulse 98 Oximetry General: Alert, Oriented to Person, Oriented to Place, Oriented to Time, Cooperative, Mild distress HEENT: Atraumatic, PERRLA, EOMI, Mouth Mucous membr. moist/[place], Nose Mucous membr. moist/[place], Dentition Normal, Decreased Hearing Acuity. No: Pharyngeal Erythema Neck: Normal Range of Motion Carotids: WNL Thyroid: WNL Lungs: Clear to auscultation, Normal air movement, Speaks full Sentences, Rales (in bases bilat) Cardiovascular: Regular rate, Normal S1, Normal S2, No murmurs Abdomen: Normal bowel sounds, Soft, No tenderness, No hepatospenomegaly, No masses Integumentary: Normal, [place], Warm, Dry Extremities: No clubbing, No cyanosis, No edema, Normal pulses, No tenderness/swelling Neurological: Normal gait, Normal speech, Strength Equal Bilat, Normal tone, Sensation intact, Cranial nerves 3-12 NL, Reflexes 2+ Psych/Mental Status: Mental status NL, Mood NL, Appropriate Affect, Intact Judgment - Laboratory Results Laboratory Results: Laboratory Results 09/28/19 09/28/19 09/28/19 06:50 06:50 12:30 WBC 5.20 RBC 3.14 L Hgb 9.6 L Hct 28.1 L MCV 90.0 MCH 30.5 MCHC 34.0 RDW 14.5 H Plt Count 264 Neut % (Auto) 50.5 Lymph % (Auto) 36.0 Crisp % (Auto) 7.2 Eos % (Auto) 5.7 Baso % (Auto) 0.6 Neut # (Auto) 2.6 Lymph # (Auto) 1.9 Crisp # (Auto) 0.4 Eos # (Auto) 0.3 Baso # (Auto) 0.0 Sodium 145 Potassium 4.0 Chloride 111 H Carbon Dioxide 22 Anion Gap 16.0 BUN 31 H Creatinine 1.59 H Estimated Creat Clear 57 Est GFR ( Amer) 39 L Est GFR (Non-Af Amer) 33 L Glucose 99 Calcium 10.0 Total Bilirubin 0.7 AST 40 ALT 21 Alkaline Phosphatase 74 Creatine Kinase 69 61 CK-MB (CK-2) < 2.7 Troponin I 0.075 H 0.062 H NT-Pro-B Natriuret Pep > 66579.0 H Total Protein 5.9 L Albumin 3.9 Assessment/Plan - Assessment/Plan (1) CHF (congestive heart failure) Status: Chronic Current Visit: Yes Qualifiers: Heart failure type: unspecified Heart failure chronicity: unspecified Qualified Code(s): I50.9 - Heart failure, unspecified (2) Depressive disorder Status: Acute Current Visit: No (3) Essential hypertension Status: Chronic Current Visit: No VTE Assessment - RISK FACTOR SCORE VTE RISK FACTOR SCORES: AGE OVER 60 YEARS, CONGESTIVE HEART FAILURE OR MYOCARDIAL INFARCTION - RISK VTE MODERATE RISK: SCORE OF 2 (RISK PROXIMAL DVT 2-4%) PROPHYAXIS NEEDED
[2019-09-28] MEDS: MIRTAZAPINE 15 MG TABLET PO SCH (20:46)
[2019-09-29] MEDS: MIRTAZAPINE 15 MG TABLET PO SCH ×2 (05:19→20:12)
[2019-09-29] MEDS: CITALOPRAM HYDROBROMIDE 20 MG TABLET PO SCH (08:24)
[2019-09-29] MEDS: SODIUM CHLORIDE 0.9 % (FLUSH) 10 ML DISP.SYRIN IV SCH ×2 (08:26→20:16)
[2019-09-29] MEDS: FUROSEMIDE 40 MG/4 ML VIAL IVP SCH ×2 (08:26→20:51)
--- NOTE | 2019-09-29 09:20 | Inpatient Progress Note ---
Subjective - Required Recertification Statement I anticipate X number of days because-include discharge plan: 2 days - Review of Systems Subjective: Patient seems to be doing some better at this time. No ocugh. Patient denies nay chest pain or pressure. Appetite has been poor but is eating some. No orthostatic symptoms HEENT: Denies: Head Aches Pulmonary: Dyspnea (improved) Cardiovascular: Denies: Chest Pain, Palpitations, Orthopnea, Light Headedness Gastrointestinal: Denies: Nausea, Vomiting, Constipation Objective - Exam Vitals and I&O: Vital Signs Temp 98.1 F 09/29/19 05:54 Pulse 85 09/29/19 05:54 Resp 16 09/29/19 05:54 BP 105/54 09/29/19 05:54 Pulse Ox 95 09/29/19 05:54 Intake & Output 09/28/19 09/28/19 09/29/19 11:59 23:59 11:59 Intake Total 180 120 Output Total 350 600 Balance -350 180 -480 Weight 62.913 kg Intake: IV 0 0 Right Antecubital 0 0 Oral 180 120 Output: Urine 350 600 Other: Voiding Method Toilet Toilet Toilet # Voids 200 # Bowel Movements 0 0 0 General: Alert, Oriented to Person, Oriented to Place, Oriented to Time, Cooperative Neck: Supple, No JVD, No thyromegaly Lungs: Rales (few rales in the base L>R) Cardiovascular: Regular rate, Normal S1, Normal S2, No murmurs Abdomen: Normal bowel sounds, Soft, No tenderness, No masses - Results Results: Laboratory Results WBC 5.20 K/ul (4.00-12.00) 09/28/19 06:50 RBC 3.14 M/ul (3.90-5.20) L 09/28/19 06:50 Hgb 9.6 g/dL (11.5-16.0) L 09/28/19 06:50 Hct 28.1 % (34.5-46.5) L 09/28/19 06:50 MCV 90.0 fl (80.0-100.0) 09/28/19 06:50 MCH 30.5 pg (28.0-34.0) 09/28/19 06:50 MCHC 34.0 g/dL (30.0-36.0) 09/28/19 06:50 RDW 14.5 % (11.3-14.3) H 09/28/19 06:50 Plt Count 264 K/mm3 (130-400) 09/28/19 06:50 Neut % (Auto) 50.5 % (39.0-79.0) 09/28/19 06:50 Lymph % (Auto) 36.0 % (16.0-50.0) 09/28/19 06:50 Jack % (Auto) 7.2 % (0.0-11.0) 09/28/19 06:50 Eos % (Auto) 5.7 % (0.0-6.8) 09/28/19 06:50 Baso % (Auto) 0.6 % (0.0-1.5) 09/28/19 06:50 Neut # (Auto) 2.6 # k/uL (1.4-7.7) 09/28/19 06:50 Lymph # (Auto) 1.9 # k/uL (0.6-4.0) 09/28/19 06:50 Jack # (Auto) 0.4 # k/uL (0.0-0.9) 09/28/19 06:50 Eos # (Auto) 0.3 # k/uL (0.0-0.6) 09/28/19 06:50 Baso # (Auto) 0.0 # k/uL (0.0-0.5) 09/28/19 06:50 Sodium 145 mmol/L (137-145) 09/28/19 06:50 Potassium 4.0 mmol/L (3.5-5.1) 09/28/19 06:50 Chloride 111 mmol/L (98-107) H 09/28/19 06:50 Carbon Dioxide 22 mmol/L (22-30) 09/28/19 06:50 Anion Gap 16.0 09/28/19 06:50 BUN 31 mg/dL (7-17) H 09/28/19 06:50 Creatinine 1.59 mg/dL (0.52-1.04) H 09/28/19 06:50 Estimated Creat Clear 57 09/28/19 06:50 Est GFR ( Amer) 39 (60-) L 09/28/19 06:50 Est GFR (Non-Af Amer) 33 (60-) L 09/28/19 06:50 Glucose 99 mg/dL (74-106) 09/28/19 06:50 Calcium 10.0 mg/dL (8.4-10.2) 09/28/19 06:50 Total Bilirubin 0.7 mg/dL (0.2-1.3) 09/28/19 06:50 AST 40 U/L (15-46) 09/28/19 06:50 ALT 21 U/L (4-35) 09/28/19 06:50 Alkaline Phosphatase 74 U/L (38-126) 09/28/19 06:50 Creatine Kinase 63 U/L (30-135) 09/28/19 12:30 CK-MB (CK-2) < 2.7 ng/mL (0.0-5.6) 09/28/19 06:50 Troponin I 0.051 ng/mL (0.012-0.034) H 09/28/19 19:36 NT-Pro-B Natriuret Pep > 13732.0 pg/mL (15.0-450.0) H 09/28/19 06:50 Total Protein 5.9 g/dL (6.3-8.2) L 09/28/19 06:50 Albumin 3.9 g/dL (3.5-5.0) 09/28/19 06:50 Assessment/Plan - Assessment/Plan (1) CHF (congestive heart failure) Status: Chronic Current Visit: Yes Qualifiers: Heart failure type: unspecified Heart failure chronicity: unspecified Qualified Code(s): I50.9 - Heart failure, unspecified Assessment: imporved (2) Depressive disorder Status: Acute Current Visit: No Assessment: stable (3) Essential hypertension Status: Chronic Current Visit: No Assessment: stable
[2019-09-30] MEDS: CITALOPRAM HYDROBROMIDE 20 MG TABLET PO SCH (08:15)
[2019-09-30 08:33] LABS: eGFR (Non-African) 34
--- NOTE | 2019-09-30 09:29 | Diagnostic Imaging Report ---
PATIENT MR#: [id number] PATIENT PATIENT NAME: DAMON MARX DATE OF : 1930 REFERRING PHYSICIAN: Guzman Soliz EXAM DATE: 09/30/2019 ACCESSION NUMBER: [id number] EXAM DESCRIPTION: CHEST 2VIEW Examination: PA and lateral chest. History: Evaluate lung bryson. Comparison exam: 28 September 2019 Findings: PA and lateral views of the chest demonstrates a prominent cardiac silhouette. Tortuous aor ta with vascular calcifications. Chronic interstitial changes. Continued left base effusion. Bilateral posterior sulci blunting. Articular degenerative changes. Impression: Continued, left greater than right, bibasilar effusions. Cardiomegaly. Read by: Dr. Oneil Armijo Transcribed by: Transcribed Date: Electronically signed by: Dr. Oneil Armijo Date signed: 09/30/2019 9:28:08 AM
[2019-09-30] MEDS: FUROSEMIDE 40 MG/4 ML VIAL IVP SCH (11:31)
[2019-09-30] MEDS: SODIUM CHLORIDE 0.9 % (FLUSH) 10 ML DISP.SYRIN IV SCH ×2 (11:31→20:47)
[2019-09-30] MEDS ORDERED: ONDANSETRON HCL/PF 4 MG/ 2ML VIAL IVP PRN (12:08)
--- NOTE | 2019-09-30 12:12 | Inpatient Progress Note ---
Subjective - Required Recertification Statement I anticipate X number of days because-include discharge plan: 2 days - Review of Systems Subjective: Patient seems to be doing some better at this time. No ocugh. Patient denies nay chest pain or pressure. Appetite has been poor but is eating some. No orthostatic symptoms Objective - Exam Vitals and I&O: Vital Signs Temp 98.8 F 09/30/19 08:47 Pulse 87 09/30/19 10:00 Resp 18 09/30/19 08:47 BP 112/67 09/30/19 08:47 Pulse Ox 95 09/30/19 10:00 Intake & Output 09/29/19 09/30/19 09/30/19 23:59 11:59 23:59 Intake Total 243 63 Balance 243 63 Weight 61.235 kg 61.87 kg Intake: IV 3 3 Right Antecubital 3 3 Oral 240 60 Other: Voiding Method Toilet Toilet # Voids 1 1 # Bowel Movements 0 0 General: Alert, Oriented to Person, Oriented to Place, Oriented to Time, Cooperative Lungs: Rales (few basilar) Cardiovascular: Regular rate, Normal S1, Normal S2 Abdomen: Normal bowel sounds, Soft, No tenderness - Results Results: Laboratory Results WBC 5.20 K/ul (4.00-12.00) 09/28/19 06:50 RBC 3.14 M/ul (3.90-5.20) L 09/28/19 06:50 Hgb 9.6 g/dL (11.5-16.0) L 09/28/19 06:50 Hct 28.1 % (34.5-46.5) L 09/28/19 06:50 MCV 90.0 fl (80.0-100.0) 09/28/19 06:50 MCH 30.5 pg (28.0-34.0) 09/28/19 06:50 MCHC 34.0 g/dL (30.0-36.0) 09/28/19 06:50 RDW 14.5 % (11.3-14.3) H 09/28/19 06:50 Plt Count 264 K/mm3 (130-400) 09/28/19 06:50 Neut % (Auto) 50.5 % (39.0-79.0) 09/28/19 06:50 Lymph % (Auto) 36.0 % (16.0-50.0) 09/28/19 06:50 [place] % (Auto) 7.2 % (0.0-11.0) 09/28/19 06:50 Eos % (Auto) 5.7 % (0.0-6.8) 09/28/19 06:50 Baso % (Auto) 0.6 % (0.0-1.5) 09/28/19 06:50 Neut # (Auto) 2.6 # k/uL (1.4-7.7) 09/28/19 06:50 Lymph # (Auto) 1.9 # k/uL (0.6-4.0) 09/28/19 06:50 [place] # (Auto) 0.4 # k/uL (0.0-0.9) 09/28/19 06:50 Eos # (Auto) 0.3 # k/uL (0.0-0.6) 09/28/19 06:50 Baso # (Auto) 0.0 # k/uL (0.0-0.5) 09/28/19 06:50 Sodium 143 mmol/L (137-145) 09/30/19 07:50 Potassium 3.8 mmol/L (3.5-5.1) 09/30/19 07:50 Chloride 108 mmol/L (98-107) H 09/30/19 07:50 Carbon Dioxide 25 mmol/L (22-30) 09/30/19 07:50 Anion Gap 13.8 09/30/19 07:50 BUN 31 mg/dL (7-17) H 09/30/19 07:50 Creatinine 1.54 mg/dL (0.52-1.04) H 09/30/19 07:50 Estimated Creat Clear 29 09/30/19 07:50 Est GFR ( Amer) 41 (60-) L 09/30/19 07:50 Est GFR (Non-Af Amer) 34 (60-) L 09/30/19 07:50 Glucose 101 mg/dL (74-106) 09/30/19 07:50 Calcium 9.5 mg/dL (8.4-10.2) 09/30/19 07:50 Total Bilirubin 0.7 mg/dL (0.2-1.3) 09/28/19 06:50 AST 40 U/L (15-46) 09/28/19 06:50 ALT 21 U/L (4-35) 09/28/19 06:50 Alkaline Phosphatase 74 U/L (38-126) 09/28/19 06:50 Creatine Kinase 63 U/L (30-135) 09/28/19 12:30 CK-MB (CK-2) < 2.7 ng/mL (0.0-5.6) 09/28/19 06:50 Troponin I 0.051 ng/mL (0.012-0.034) H 09/28/19 19:36 NT-Pro-B Natriuret Pep > 73696.0 pg/mL (15.0-450.0) H 09/30/19 07:50 Total Protein 5.9 g/dL (6.3-8.2) L 09/28/19 06:50 Albumin 3.9 g/dL (3.5-5.0) 09/28/19 06:50 Assessment/Plan - Assessment/Plan (1) CHF (congestive heart failure) Status: Chronic Qualifiers: Heart failure type: unspecified Heart failure chronicity: unspecified Qualified Code(s): I50.9 - Heart failure, unspecified Assessment: approves to be improved (2) Depressive disorder Status: Chronic (3) Essential hypertension Status: Chronic
[2019-09-30] MEDS: MIRTAZAPINE 15 MG TABLET PO SCH (20:46)
[2019-10-01] MEDS ORDERED: FUROSEMIDE 40 MG TABLET PO SCH (07:00)
[2019-10-01] MEDS: SODIUM CHLORIDE 0.9 % (FLUSH) 10 ML DISP.SYRIN IV SCH (09:15)
[2019-10-01 14:03] VITALS: BP 98/56
--- NOTE | 2019-10-05 08:13 | Discharge Summary ---
Discharge Summary - Discharge Sumary Admission Date: 09/28/19 (Acute) Discharge Date: 10/01/19 ( [facility]) Discharge To: Other (SNF) History of Present Illness: 81-year-old white female who stated over the last 3 to 4 days she had noted increasing swelling in her legs and increasing shortness of breath and some orthopnea symptoms. Patient stated she is had a mild nonproductive cough. Patient has been having dyspnea with exertion. Patient denies any chest pain or chest pressure. Patient does not have any previous history of congestive heart failure. Patient was seen in the emergency room felt to have some pulmonary edema on chest x-ray BNP was markedly elevated. Patient was felt to be in congestive heart failure subsequently admitted to the hospital for further care and evaluation. Condition at Discharge: Stable Home Medications: Ambulatory Orders Medication Instructions Recorded Mirtazapine [Remeron] 15 mg PO HS #30 tablet 08/14/19 Furosemide [Lasix] 40 mg PO DAILY #30 tablet 10/01/19 Acetaminophen [Tylenol Extra 500 mg PO Q4H PRN tablet 10/09/19 Strength] Potassium Chloride 10 meq PO DAILY #30 tablet.er 10/10/19 Consultations this Visit: None Procedures this Visit: None Allergies/Adverse Reactions: Allergies Allergy/AdvReac Type Severity Reaction Status Date / Time Penicillins Allergy Itchy Skin Verified 09/28/19 06:53 Sulfa (Sulfonamide Allergy Verified 09/28/19 06:53 Antibiotics) sulfamethoxazole Allergy Itchy Skin Verified 09/28/19 06:53 [From Bactrim] trimethoprim [From Bactrim] Allergy Itchy Skin Verified 09/28/19 06:53 Discharge Summary: Patient was admitted to acute care and was started on IV Lasix with good diruresis. Patient lost 2 kg of fluid. Breathing did improve with diuresis. Patient's electrolytes remained stable. Patient remained weak howwever with poor exercise tolerance. Patient will be discharged to SNF care. Will arrange for cardiac consultation and ECHO. patient will be continue of diurectic therapy. Patient has been started on potassium therpy for hypokalemia. - Final Diagnosis (1) CHF (congestive heart failure) Problems: Improved (2) Depressive disorder Problems: stable (3) Essential hypertension Problems: stable
== END 2019-10-01 12:31 | DRG 293 ==
LOC: ED 06:17 → SOUTH 08:00
PROVIDERS: ADMIT Family Medicine; ATTEND Family Medicine
DX: I11.0 Hypertensive heart disease with heart failure (principal); F32.9 Major depressive disorder, single episode, unspecified; I50.9 Heart failure, unspecified; Z79.899 Other long term (current) drug therapy; Z88.0 Allergy status to penicillin; Z88.2 Allergy status to sulfonamides; Z98.49 Cataract extraction status, unspecified eye; Z90.710 Acquired absence of both cervix and uterus; Z96.641 Presence of right artificial hip joint
CPT/HCPCS: 36415; 71046; 80048; 80053; 82550; 82553; 83880; 84484; 85025; 93005; 97116; 97535; J1940; J2405; 99221; 99231; 99238; S1016

== ENCOUNTER 2019-10-01 12:32 | Inpatient (IN) | payer MEDICARE ==
[2019-10-01 14:44] VITALS: BMI 25.0
--- NOTE | 2019-10-01 15:02 | History and Physical Report ---
History of Present Illnes - History of Present Illness Reason for Visit: gait disturbance History of Present Illness: 89yo Who approximately six months ago sustained a introduction care acute fracture. Patient subsequently underwent open reduction internal fixation. Patient was admitted to skilled at that time for rehab services. Patient with discharged home in seem to be doing fairly well for a short period of time. Patient in developed some depression with weight loss and decrease appetite. Patient developed a pneumonia with readmitted to the hospital approximately eight weeks ago. at that time patient was readmitted to [facility] for rehab services. Upon returning home patient was doing fair. Approximatelythree days prior to acute stay patient started having some increasing shortness of breath dyspnea. Patient subsequently brought to the emergency room with noted be hypoxic with evidence of congestive heart failure.Patient has finished her acute hospital stay for treatment for this. However patient is become weak once again with an increase fall risk. it was felt that she would benefit from further skilled therapy and was admittedto SNF for this. - Past Medical History Cardiac: CHF, HTN - Past Surgical History Past Surgical History: Breast Biopsy, Cataract Removal, Hysterectomy, Other (ORIF Right hip) - Past Social History Smoke: No Occupation: retired Alcohol: Rare Drugs: None Lives: Alone Domestic Violence: Negative - Health Maintenance Health Maintenance: Influenza Vaccine, Pneumococcal Vaccine. denies: Mammogram Influenza Vaccine: Current for this Influenza Season Pneumonia Vaccine: Yes Resuscitation Status: DNR - Unable to Obtain History Unable to Obtain: Yes Review of Systems - Review of Systems Constitutional: Weakness. negative: Fever, Chills, Sweats Eyes: negative: pain, vision change ENT: Other (hearing problems). negative: Ear Pain, Mouth Pain Respiratory: Shortness of Breath, SOB with Excertion. negative: Cough, Dry, Hemoptysis, Pleuritic Pain, Sputum Cardiovascular: negative: Chest Pain, Palpitations, Orthopnea, Edema, Light Headedness Gastrointestinal: Nausea. negative: Vomiting, Abdominal Pain, Diarrhea, Constipation, Melena, Hematochezia Genitourinary: negative: Dysuria, Frequency, Incontinence, Hematuria Musculoskeletal: negative: Neck Pain, Shoulder Pain Skin: negative: Rash Neurological: Weakness. negative: Numbness, Incoordination, Change in Speech, Confusion, Seizures Other: depression - Medications/Allergies Allergies/Adverse Reactions: Allergies Allergy/AdvReac Type Severity Reaction Status Date / Time Penicillins Allergy Itchy Skin Verified 09/28/19 06:53 Sulfa (Sulfonamide Allergy Verified 09/28/19 06:53 Antibiotics) sulfamethoxazole Allergy Itchy Skin Verified 09/28/19 06:53 [From Bactrim] trimethoprim [From Bactrim] Allergy Itchy Skin Verified 09/28/19 06:53 Current Inpatient Medications: Current Inpatient Medications Acetaminophen (Tylenol Extra Strength) 500 mg PO Q4H PRN PRN Reason: Fever >101 Stop: 10/31/19 14:58 Enoxaparin Sodium (Lovenox) [address] [facility] Stop: 10/16/19 08:59 Furosemide (Lasix) [address] [facility] Stop: 11/01/19 08:59 Mirtazapine (Remeron) 22.[address] [facility] Stop: 10/31/19 20:59 Ondansetron HCl (Zofran Odt) 4 mg PO Q6H PRN PRN Reason: Nausea / Vomiting Stop: 10/31/19 14:57 Pantoprazole Sodium (Protonix) [address] [facility] Stop: 11/01/19 06:59 Exam - Exam Vital Signs: Vital Signs (72 hours) 10/01/19 10/01/19 10/01/19 09:16 12:31 14:40 Temperature 99.6 F Pulse Rate [ 108 H Right] Respiratory 18 Rate Blood Pressure 98/56 Blood Pressure 95/56 [Left Arm] Blood Pressure 98/56 134/78 [Right Arm] O2 Sat by Pulse 95 Oximetry 10/01/19 14:41 Temperature 99.6 F Pulse Rate [ 108 H Right] Respiratory 18 Rate Blood Pressure Blood Pressure [Left Arm] Blood Pressure 134/78 [Right Arm] O2 Sat by Pulse 95 Oximetry General: Alert, Oriented to Person, Oriented to Place, Oriented to Time, Cooperative HEENT: Atraumatic, PERRLA, EOMI, Mouth Mucous membr. moist/[place], Nose Mucous membr. moist/[place] Neck: Normal Range of Motion Carotids: WNL Thyroid: WNL Lungs: Clear to auscultation, Normal air movement, Speaks full Sentences Cardiovascular: Regular rate, Normal S1, Normal S2, No murmurs Abdomen: Normal bowel sounds, Soft, No tenderness, No hepatospenomegaly, No masses Integumentary: Normal, [place], Warm, Dry Extremities: No clubbing, No cyanosis, No edema, Normal pulses, No tenderness/swelling Neurological: Normal gait, Normal speech, Strength Equal Bilat, Normal tone, Sensation intact, Cranial nerves 3-12 NL, Reflexes 2+ Psych/Mental Status: Mental status NL, Appropriate Affect, Intact Judgment. No: Mood NL (depressed) Assessment/Plan - Assessment/Plan (1) Gait disturbance Status: Acute Current Visit: No Assessment: Will start PT and OT. Goal is for patient to return home (2) Depressive disorder Status: Chronic Current Visit: No Assessment: Seems to be some worse since admission. I will increase mirtazapine to 22.5 mg. encourage oral intake. (3) CHF (congestive heart failure) Status: Chronic Current Visit: No Qualifiers: Heart failure type: unspecified Heart failure chronicity: unspecified Qualified Code(s): I50.9 - Heart failure, unspecified Assessment: Will schedule cardiology appointment, needs ECHO. (4) Essential hypertension Status: Chronic Current Visit: No Assessment: Patient is off medications at this time. Will continue to monitor VTE Assessment - RISK FACTOR SCORE VTE RISK FACTOR SCORES: AGE OVER 60 YEARS, ANTICIPATED BED CONFINEMENT OR IMMOBILIZATION > 24 HOURS - RISK VTE HIGH RISK: SCORE OF 3-4 (RISK PROXIMAL DVT 4-8%) PROPHYLAXIS NEEDED
[2019-10-01] MEDS ORDERED: PANTOPRAZOLE SODIUM 40 MG TABLET.DR ONE (20:19)
[2019-10-01] MEDS: MIRTAZAPINE 15 MG TABLET PO SCH (20:42)
[2019-10-02] MEDS: ONDANSETRON HCL 4 MG TAB.RAPDIS PO PRN (01:00)
[2019-10-02] MEDS: PANTOPRAZOLE SODIUM 40 MG TABLET.DR PO SCH (06:17)
[2019-10-02] MEDS: FUROSEMIDE 40 MG TABLET PO SCH (08:44)
[2019-10-02] MEDS: ENOXAPARIN SODIUM 30 MG/0.3 ML DISP.SYRIN SQ SCH (08:44)
[2019-10-02] MEDS: MIRTAZAPINE 15 MG TABLET PO SCH (20:11)
[2019-10-03] MEDS: PANTOPRAZOLE SODIUM 40 MG TABLET.DR PO SCH (05:37)
[2019-10-03] MEDS: FUROSEMIDE 40 MG TABLET PO SCH (09:26)
[2019-10-03] MEDS: ENOXAPARIN SODIUM 30 MG/0.3 ML DISP.SYRIN SQ SCH (09:26)
[2019-10-03] MEDS: MIRTAZAPINE 15 MG TABLET PO SCH (20:56)
[2019-10-04] MEDS: ONDANSETRON HCL 4 MG TAB.RAPDIS PO PRN (00:30)
[2019-10-04] MEDS: PANTOPRAZOLE SODIUM 40 MG TABLET.DR PO SCH (06:27)
[2019-10-04] MEDS: ENOXAPARIN SODIUM 30 MG/0.3 ML DISP.SYRIN SQ SCH (08:30)
[2019-10-04] MEDS: FUROSEMIDE 40 MG TABLET PO SCH (08:30)
[2019-10-04] MEDS ORDERED: POLYETHYLENE GLYCOL 3350 17 GM POWD.PACK PO ONE (17:43)
[2019-10-04] MEDS: MIRTAZAPINE 15 MG TABLET PO SCH (20:32)
[2019-10-05] MEDS ORDERED: MELATONIN 3 MG TABLET PO ONE (00:14)
[2019-10-05] MEDS: ACETAMINOPHEN 500 MG TABLET PO PRN (00:22)
[2019-10-05] MEDS: MELATONIN 3 MG TABLET PO SCH ×2 (00:22→21:06)
[2019-10-05] MEDS: PANTOPRAZOLE SODIUM 40 MG TABLET.DR PO SCH (05:46)
[2019-10-05 06:53] LABS: BASOPHILS % 0.2 % (0.0-1.5); NEUTROPHILS # 2.7 # k/uL (1.4-7.7)
[2019-10-05] MEDS: FUROSEMIDE 40 MG TABLET PO SCH (08:34)
[2019-10-05] MEDS: ENOXAPARIN SODIUM 30 MG/0.3 ML DISP.SYRIN SQ SCH (08:34)
[2019-10-05] MEDS: POLYETHYLENE GLYCOL 3350 17 GM POWD.PACK PO SCH (10:50)
[2019-10-05] MEDS ORDERED: POLYETHYLENE GLYCOL 3350 17 GM POWD.PACK PO ONE (17:43)
[2019-10-05] MEDS: MIRTAZAPINE 15 MG TABLET PO SCH (21:04)
[2019-10-06] MEDS: PANTOPRAZOLE SODIUM 40 MG TABLET.DR PO SCH (06:21)
--- NOTE | 2019-10-06 07:15 | Inpatient Progress Note ---
Subjective - Required Recertification Statement I anticipate X number of days because-include discharge plan: 10 days - Review of Systems Events since last encounter: Patient stated she seemed to be weaker than what she was 5 to 6 days ago. Patient stated her breathing appeared to be stable at the time denies any increasing dyspnea. Patient not had a chest pain or chest pressure. Patient is feeling more depressed because she's not sure she is ever going to return to her baseline healthwise. Appetite has been fair. Objective - Exam Vitals and I&O: Vital Signs Temp 99.8 F H 10/05/19 21:00 Pulse 90 10/05/19 21:00 Resp 16 10/05/19 21:00 BP 90/60 10/05/19 21:00 Pulse Ox 94 10/05/19 21:00 Intake & Output 10/05/19 10/05/19 10/06/19 11:59 23:59 11:59 Intake Total 240 200 Balance 240 200 Intake: Oral 240 200 Other: Voiding Method Toilet # Bowel Movements 1 1 General: Alert, Oriented to Person, Oriented to Place, Oriented to Time Neck: Supple, No JVD Lungs: Clear to auscultation, Normal air movement, Speaks full Sentences. No: Wheezes Cardiovascular: Regular rate, Normal S1, Normal S2 - Results Results: Laboratory Results WBC 4.70 K/ul (4.00-12.00) 10/05/19 05:30 RBC 2.78 M/ul (3.90-5.20) L 10/05/19 05:30 Hgb 8.5 g/dL (11.5-16.0) L 10/05/19 05:30 Hct 26.0 % (34.5-46.5) L 10/05/19 05:30 MCV 94.0 fl (80.0-100.0) 10/05/19 05:30 MCH 30.6 pg (28.0-34.0) 10/05/19 05:30 MCHC 32.7 g/dL (30.0-36.0) 10/05/19 05:30 RDW 14.1 % (11.3-14.3) 10/05/19 05:30 Plt Count 237 K/mm3 (130-400) 10/05/19 05:30 Neut % (Auto) 58.0 % (39.0-79.0) 10/05/19 05:30 Lymph % (Auto) 32.2 % (16.0-50.0) 10/05/19 05:30 [place] % (Auto) 5.6 % (0.0-11.0) 10/05/19 05:30 Eos % (Auto) 4.0 % (0.0-6.8) 10/05/19 05:30 Baso % (Auto) 0.2 % (0.0-1.5) 10/05/19 05:30 Neut # (Auto) 2.7 # k/uL (1.4-7.7) 10/05/19 05:30 Lymph # (Auto) 1.5 # k/uL (0.6-4.0) 10/05/19 05:30 [place] # (Auto) 0.3 # k/uL (0.0-0.9) 10/05/19 05:30 Eos # (Auto) 0.2 # k/uL (0.0-0.6) 10/05/19 05:30 Baso # (Auto) 0.0 # k/uL (0.0-0.5) 10/05/19 05:30 Sodium 141 mmol/L (137-145) 10/05/19 05:30 Potassium 4.4 mmol/L (3.5-5.1) 10/05/19 05:30 Chloride 106 mmol/L (98-107) 10/05/19 05:30 Carbon Dioxide 27 mmol/L (22-30) 10/05/19 05:30 Anion Gap 12.4 10/05/19 05:30 BUN 32 mg/dL (7-17) H 10/05/19 05:30 Creatinine 1.58 mg/dL (0.52-1.04) H 10/05/19 05:30 Estimated Creat Clear 28 10/05/19 05:30 Est GFR ( Amer) 40 (60-) L 10/05/19 05:30 Est GFR (Non-Af Amer) 33 (60-) L 10/05/19 05:30 Glucose 92 mg/dL (74-106) 10/05/19 05:30 Calcium 9.6 mg/dL (8.4-10.2) 01/06/20 05:30 Total Bilirubin 0.4 mg/dL (0.2-1.3) 10/05/19 05:30 AST 33 U/L (15-46) 10/05/19 05:30 ALT 17 U/L (4-35) 10/05/19 05:30 Alkaline Phosphatase 57 U/L (38-126) 10/05/19 05:30 Total Protein 5.3 g/dL (6.3-8.2) L 10/05/19 05:30 Albumin 3.4 g/dL (3.5-5.0) L 10/05/19 05:30 Assessment/Plan - Assessment/Plan (1) Gait disturbance Status: Acute Current Visit: No Assessment: Continue with physical and occupational therapy. (2) Depressive disorder Status: Chronic Current Visit: No Assessment: Continue with mirtazapine. (3) CHF (congestive heart failure) Status: Chronic Current Visit: No Qualifiers: Heart failure type: unspecified Heart failure chronicity: unspecified Qualified Code(s): I50.9 - Heart failure, unspecified Assessment: Appointment is been made for the patient to be seen for echocardiogram and a cardiology consult admit [facility]. (4) Essential hypertension Status: Chronic Current Visit: No
[2019-10-06] MEDS: ENOXAPARIN SODIUM 30 MG/0.3 ML DISP.SYRIN SQ SCH (08:38)
[2019-10-06] MEDS: POLYETHYLENE GLYCOL 3350 17 GM POWD.PACK PO SCH (11:20)
[2019-10-06] MEDS: MELATONIN 3 MG TABLET PO SCH (20:38)
[2019-10-06] MEDS: MIRTAZAPINE 15 MG TABLET PO SCH (20:38)
[2019-10-07] MEDS: PANTOPRAZOLE SODIUM 40 MG TABLET.DR PO SCH (06:19)
[2019-10-07] MEDS: ENOXAPARIN SODIUM 30 MG/0.3 ML DISP.SYRIN SQ SCH (08:36)
[2019-10-07] MEDS: FUROSEMIDE 40 MG TABLET PO SCH (12:06)
[2019-10-07] MEDS: POLYETHYLENE GLYCOL 3350 17 GM POWD.PACK PO SCH (12:07)
[2019-10-07] MEDS: MELATONIN 3 MG TABLET PO SCH (20:38)
[2019-10-07] MEDS: MIRTAZAPINE 15 MG TABLET PO SCH (20:38)
[2019-10-08] MEDS: ACETAMINOPHEN 500 MG TABLET PO PRN (04:38)
[2019-10-08] MEDS: PANTOPRAZOLE SODIUM 40 MG TABLET.DR PO SCH (06:42)
[2019-10-08] MEDS: ENOXAPARIN SODIUM 30 MG/0.3 ML DISP.SYRIN SQ SCH (08:22)
[2019-10-08] MEDS: FUROSEMIDE 40 MG TABLET PO SCH (08:22)
[2019-10-08] MEDS: POLYETHYLENE GLYCOL 3350 17 GM POWD.PACK PO SCH (12:21)
[2019-10-08] MEDS: MELATONIN 3 MG TABLET PO SCH (21:17)
[2019-10-08] MEDS: MIRTAZAPINE 15 MG TABLET PO SCH (21:17)
[2019-10-09] MEDS: ACETAMINOPHEN 500 MG TABLET PO PRN (03:24)
[2019-10-09] MEDS: PANTOPRAZOLE SODIUM 40 MG TABLET.DR PO SCH (06:41)
[2019-10-09] MEDS: ENOXAPARIN SODIUM 30 MG/0.3 ML DISP.SYRIN SQ SCH (09:23)
[2019-10-09] MEDS: FUROSEMIDE 40 MG TABLET PO SCH (09:25)
[2019-10-09] MEDS: POLYETHYLENE GLYCOL 3350 17 GM POWD.PACK PO SCH (11:41)
[2019-10-09] MEDS: MELATONIN 3 MG TABLET PO SCH (21:15)
[2019-10-09] MEDS: MIRTAZAPINE 15 MG TABLET PO SCH (21:15)
[2019-10-10] MEDS: PANTOPRAZOLE SODIUM 40 MG TABLET.DR PO SCH (05:48)
[2019-10-10 09:22] VITALS: BP 101/56
[2019-10-10] MEDS: FUROSEMIDE 40 MG TABLET PO SCH (09:24)
[2019-10-10] MEDS: ENOXAPARIN SODIUM 30 MG/0.3 ML DISP.SYRIN SQ SCH (09:43)
[2019-10-10] MEDS: POLYETHYLENE GLYCOL 3350 17 GM POWD.PACK PO SCH (11:17)
--- NOTE | 2019-10-10 14:47 | Discharge Summary ---
Discharge Summary - Discharge [facility] Admission Date: 10/01/19 (SNF) Discharge Date: 10/10/19 (Home) Discharge To: Home History of Present Illness: 81-year-old white female who stated over the last 3 to 4 days she had noted increasing swelling in her legs and increasing shortness of breath and some orthopnea symptoms. Patient stated she is had a mild nonproductive cough. Patient has been having dyspnea with exertion. Patient denies any chest pain or chest pressure. Patient does not have any previous history of congestive heart failure. Patient was seen in the emergency room felt to have some pulmonary edema on chest x-ray BNP was markedly elevated. Patient was felt to be in congestive heart failure subsequently admitted to the hospital for further care and evaluation. During hospitalization patient did improve some but remained weak with poor exercises tolerance. Patient was admitted to SNF Condition at Discharge: Stable Home Medications: Ambulatory Orders Medication Instructions Recorded Mirtazapine [Remeron] 15 mg PO HS #30 tablet 08/14/19 Furosemide [Lasix] 40 mg PO DAILY #30 tablet 10/01/19 Acetaminophen [Tylenol Extra 500 mg PO Q4H PRN tablet 10/09/19 Strength] Potassium Chloride 10 meq PO DAILY #30 tablet.er 10/10/19 Consultations this Visit: None Procedures this Visit: Other (ECHO) Allergies/Adverse Reactions: Allergies Allergy/AdvReac Type Severity Reaction Status Date / Time Penicillins Allergy Itchy Skin Verified 09/28/19 06:53 Sulfa (Sulfonamide Allergy Verified 09/28/19 06:53 Antibiotics) sulfamethoxazole Allergy Itchy Skin Verified 09/28/19 06:53 [From Bactrim] trimethoprim [From Bactrim] Allergy Itchy Skin Verified 09/28/19 06:53 - Final Diagnosis (1) Gait disturbance Problems: improved, will continue with home health therapy. (2) Depressive disorder Problems: stble (3) CHF (congestive heart failure) Problems: stable, will arange for cardiac consultation and ECHO (4) Essential hypertension Problems: stable
== END 2019-10-10 15:00 | disposition home or self-care (01) | DRG 93 ==
LOC: SOUTH 12:32
PROVIDERS: ADMIT Family Medicine; ATTEND Family Medicine
DX: R26.89 Other abnormalities of gait and mobility (principal); I11.0 Hypertensive heart disease with heart failure; I50.9 Heart failure, unspecified; F32.9 Major depressive disorder, single episode, unspecified; Z79.899 Other long term (current) drug therapy; Z88.0 Allergy status to penicillin; Z88.2 Allergy status to sulfonamides; Z98.49 Cataract extraction status, unspecified eye; Z90.710 Acquired absence of both cervix and uterus
CPT/HCPCS: 36415; 80053; 83880; 84484; 85025; 99221; 99231; 99238; J1650; A9270

== ENCOUNTER 2019-10-14 16:51 | Outpatient (CLI) | payer MEDICARE ==
[2019-10-05 21:48] VITALS: BP 90/60
== END 2019-10-14 17:00 ==
LOC: LABRHC 16:51
PROVIDERS: ATTEND Family Medicine
DX: I50.9 Heart failure, unspecified (principal)
CPT/HCPCS: 80053; 83880; 84484; 85025